=== PATIENT | female | born 1950 | race Caucasian/White ===

== ENCOUNTER 2020-09-10 17:48 | Inpatient (IN) ==
[2020-09-10] MEDS ORDERED: Ampicillin/Sulbactam 3,000 MG in 0.9 % Sodium Chloride Mini Bag 100 ML IVPB ONE (21:07)
[2020-09-10] MEDS ORDERED: Naloxone 0.4 MG/ML INJ IVP PRN (22:07)
[2020-09-10] MEDS ORDERED: Vancomycin 1,500 MG/265 ML IV.SOLN IVPB ONE (22:35)
[2020-09-10] MEDS ORDERED: Ketorolac 15 MG/ML VIAL IVP PRN (22:38)
[2020-09-11 03:55] LABS: Hematocrit 33.2 % (35.3-44.9); Hemoglobin 10.9 g/dL (11.5-15.4); Mean Corpuscular HGB Conc 32.8 g/dL (31.6-35.5); Mean Corpuscular Hemoglobin 31.2 pg (28.0-33.3); Mean Corpuscular Volume 95.1 fL (83.0-100.0); Mean Platelet Volume 10.6 fL (9.4-12.4); Platelet Count 228 K/mcL (140-400); Red Blood Count 3.49 M/mcL (3.82-4.97); Red Cell Distribution Width 13.9 % (11.5-14.5)
[2020-09-11 04:04] LABS: BUN/Creatinine Ratio 23 (6-26); Blood Urea Nitrogen 25 mg/dL (8-23); Calcium 9.5 mg/dL (8.6-10.3); Carbon Dioxide 20 mEq/L (23-29); Chloride 108 mEq/L (98-107); Glucose 92 mg/dL (70-105); Osmolality,Calculated 286 (280-300); Potassium 5.4 mEq/L (3.5-5.1); Sodium 136 mEq/L (136-145); eGFR For African Americans > 60 (> 60); eGFR For Non-African Americans 50 (> 60)
[2020-09-11] MEDS: *HR* Heparin 5,000 UNIT/ML VIAL SQ SCH ×3 (05:50→23:31)
[2020-09-11] MEDS ORDERED: ALPRAZolam 0.5 MG TABLET PO PRN (07:57)
[2020-09-11] MEDS ORDERED: Insulin Human Regular 10 UNIT in 0.9 % Sodium Chloride 10 ML IV ONE (07:58)
[2020-09-11] MEDS ORDERED: *HR* Dextrose 50 % in Water (Vial) 50 ML VIAL IVP ONE (07:59)
[2020-09-11] MEDS: cefTRIAXone 1,000 MG in Water for inj. (sterile) 10 ML IVP SCH (09:10)
[2020-09-11] MEDS: atenoloL 50 MG TABLET PO SCH (09:12)
[2020-09-11] MEDS: Gabapentin 300 MG CAPSULE PO SCH ×3 (09:13→20:34)
[2020-09-11] MEDS: PARoxetine 10 MG TABLET PO SCH (09:13)
[2020-09-11] MEDS: lisinopriL 20 MG TABLET PO SCH (09:13)
[2020-09-11] MEDS: *HR* OxyCODONE/APAP 10/325 TABLET PO PRN ×2 (11:41→16:26)
[2020-09-11] MEDS: Furosemide 20 MG TABLET PO SCH (11:41)
[2020-09-11] MEDS: Nystatin POWDER 30 GM BOTTLE TP SCH ×3 (14:05→20:34)
[2020-09-11] MEDS ORDERED: Ondansetron 4 MG/2 ML VIAL IVP PRN (14:28)
[2020-09-12] MEDS: *HR* OxyCODONE/APAP 10/325 TABLET PO PRN ×4 (03:56→20:35)
[2020-09-12 04:50] LABS: Basophils % 0.3 %; Eosinophils # 0.2 K/mcL (0.0-0.6); Eosinophils % 2.3 %; Hematocrit 31.4 % (35.3-44.9); Hemoglobin 10.1 g/dL (11.5-15.4); Immature Granulocytes % 0.5 % (0-4); Lymphocytes # 1.4 K/mcL (0.6-4.6); Lymphocytes % 21.4 %; Mean Corpuscular HGB Conc 32.2 g/dL (31.6-35.5); Mean Corpuscular Hemoglobin 31.4 pg (28.0-33.3); Mean Corpuscular Volume 97.5 fL (83.0-100.0); Mean Platelet Volume 10.9 fL (9.4-12.4); Monocytes # 0.6 K/mcL (0.0-1.3); Monocytes % 8.7 %; Neutrophils # 4.4 K/mcL (1.6-8.9); Platelet Count 226 K/mcL (140-400); Red Blood Count 3.22 M/mcL (3.82-4.97); Red Cell Distribution Width 13.9 % (11.5-14.5); Segmented Neutrophils % 66.8 %; White Blood Count 6.5 K/mcL (4.3-11.1)
[2020-09-12 05:09] LABS: Calcium 8.9 mg/dL (8.6-10.3); Magnesium 1.7 mg/dL (1.6-2.6); Phosphorous 2.9 mg/dL (2.7-4.5); Potassium 4.4 mEq/L (3.5-5.1)
[2020-09-12] MEDS: *HR* Heparin 5,000 UNIT/ML VIAL SQ SCH ×3 (05:27→23:43)
[2020-09-12] MEDS: Gabapentin 300 MG CAPSULE PO SCH ×3 (09:15→20:28)
[2020-09-12] MEDS: Furosemide 20 MG TABLET PO SCH (09:15)
[2020-09-12] MEDS: cefTRIAXone 1,000 MG in Water for inj. (sterile) 10 ML IVP SCH (09:16)
[2020-09-12] MEDS: PARoxetine 10 MG TABLET PO SCH (09:16)
[2020-09-12] MEDS: Nystatin POWDER 30 GM BOTTLE TP SCH ×3 (09:19→20:28)
[2020-09-12] MEDS: lisinopriL 20 MG TABLET PO SCH (09:24)
[2020-09-12] MEDS: atenoloL 50 MG TABLET PO SCH (09:24)
[2020-09-13 03:49] LABS: Basophils % 0.3 %; Eosinophils # 0.2 K/mcL (0.0-0.6); Eosinophils % 3.7 %; Hematocrit 30.3 % (35.3-44.9); Hemoglobin 9.8 g/dL (11.5-15.4); Immature Granulocytes % 0.5 % (0-4); Lymphocytes # 1.7 K/mcL (0.6-4.6); Lymphocytes % 29.2 %; Mean Corpuscular HGB Conc 32.3 g/dL (31.6-35.5); Mean Corpuscular Hemoglobin 31.7 pg (28.0-33.3); Mean Corpuscular Volume 98.1 fL (83.0-100.0); Mean Platelet Volume 10.8 fL (9.4-12.4); Monocytes # 0.4 K/mcL (0.0-1.3); Monocytes % 7.5 %; Neutrophils # 3.4 K/mcL (1.6-8.9); Platelet Count 219 K/mcL (140-400); Red Blood Count 3.09 M/mcL (3.82-4.97); Red Cell Distribution Width 14.1 % (11.5-14.5); Segmented Neutrophils % 58.8 %; White Blood Count 5.7 K/mcL (4.3-11.1)
[2020-09-13 04:11] LABS: Calcium 8.7 mg/dL (8.6-10.3); Magnesium 1.5 mg/dL (1.6-2.6); Phosphorous 3.7 mg/dL (2.7-4.5)
[2020-09-13] MEDS: *HR* OxyCODONE/APAP 10/325 TABLET PO PRN ×3 (05:05→18:43)
[2020-09-13] MEDS: *HR* Heparin 5,000 UNIT/ML VIAL SQ SCH ×3 (05:06→21:36)
[2020-09-13] MEDS: PARoxetine 10 MG TABLET PO SCH (09:01)
[2020-09-13] MEDS: atenoloL 50 MG TABLET PO SCH (09:01)
[2020-09-13] MEDS: cefTRIAXone 1,000 MG in Water for inj. (sterile) 10 ML IVP SCH (09:01)
[2020-09-13] MEDS: Gabapentin 300 MG CAPSULE PO SCH ×3 (09:01→21:36)
[2020-09-13] MEDS: lisinopriL 20 MG TABLET PO SCH (09:01)
[2020-09-13] MEDS: Nystatin POWDER 30 GM BOTTLE TP SCH ×3 (09:02→21:36)
[2020-09-14] MEDS: *HR* OxyCODONE/APAP 10/325 TABLET PO PRN ×3 (03:18→14:53)
[2020-09-14] MEDS: *HR* Heparin 5,000 UNIT/ML VIAL SQ SCH ×2 (05:14→14:53)
[2020-09-14 06:50] LABS: Basophils % 0.3 %; Eosinophils # 0.3 K/mcL (0.0-0.6); Eosinophils % 4.3 %; Hematocrit 29.6 % (35.3-44.9); Hemoglobin 9.8 g/dL (11.5-15.4); Immature Granulocytes % 0.3 % (0-4); Lymphocytes % 17.3 %; Mean Corpuscular HGB Conc 33.1 g/dL (31.6-35.5); Mean Corpuscular Hemoglobin 32.2 pg (28.0-33.3); Mean Corpuscular Volume 97.4 fL (83.0-100.0); Mean Platelet Volume 10.4 fL (9.4-12.4); Monocytes # 0.5 K/mcL (0.0-1.3); Platelet Count 212 K/mcL (140-400); Red Blood Count 3.04 M/mcL (3.82-4.97); Red Cell Distribution Width 13.9 % (11.5-14.5); Segmented Neutrophils % 68.8 %; White Blood Count 5.9 K/mcL (4.3-11.1)
[2020-09-14] MEDS: PARoxetine 10 MG TABLET PO SCH (09:24)
[2020-09-14] MEDS: cefTRIAXone 1,000 MG in Water for inj. (sterile) 10 ML IVP SCH (09:24)
[2020-09-14] MEDS: atenoloL 50 MG TABLET PO SCH (09:24)
[2020-09-14] MEDS: lisinopriL 20 MG TABLET PO SCH (09:24)
[2020-09-14] MEDS: Gabapentin 300 MG CAPSULE PO SCH ×2 (09:24→14:53)
[2020-09-14] MEDS: Nystatin POWDER 30 GM BOTTLE TP SCH ×2 (09:25→14:55)
[2020-09-14 09:36] LABS: Calcium 9.3 mg/dL (8.6-10.3); Magnesium 1.9 mg/dL (1.6-2.6); Phosphorous 3.6 mg/dL (2.7-4.5); Potassium 4.4 mEq/L (3.5-5.1)
[2020-09-14 11:16] VITALS: BP 104/56
== END 2020-09-14 19:50 | disposition critical access hospital (66) | DRG 603 ==
LOC: 3ANU 17:48 → EMEROOARM 17:48 → 3ANU 22:07 → SUATTDRO 09-11 11:40
PROVIDERS: ADMIT Internal Medicine; ATTEND Student in an Organized Health Care Education/Training Program

== ENCOUNTER 2021-02-18 18:00 | Inpatient (IN) ==
[2021-02-18] MEDS ORDERED: Naloxone 0.4 MG/ML INJ IVP PRN (20:26)
[2021-02-18] MEDS ORDERED: Ipratropium/Albuterol Neb 3 ML IH PRN (20:28)
[2021-02-18] MEDS: Ringers Solution, Lactated 1,000 ML IVC SCH (20:49)
[2021-02-18 22:48] LABS: Calcium 8.7 mg/dL (8.6-10.3)
[2021-02-19] MEDS: Piperacillin/Tazobactam 3.375 GM in 0.9 % Sodium Chloride Mini Bag 100 ML IVPB SCH ×3 (00:11→15:37)
[2021-02-19 03:13] LABS: Platelet Count 242 K/mcL (140-400)
[2021-02-19 03:14] LABS: Basophils # 0.1 K/mcL (0.0-0.2); Basophils % 0.2 %; Hemoglobin 12.4 g/dL (11.5-15.4); Immature Granulocytes % 0.9 % (0-4); Lymphocytes # 0.6 K/mcL (0.6-4.6); Lymphocytes % 1.3 %; Mean Corpuscular HGB Conc 33.5 g/dL (31.6-35.5); Mean Corpuscular Hemoglobin 31.6 pg (28.0-33.3); Mean Corpuscular Volume 94.4 fL (83.0-100.0); Mean Platelet Volume 11.2 fL (9.4-12.4); Neutrophils # 46.9 K/mcL (1.6-8.9); Red Blood Count 3.92 M/mcL (3.82-4.97); Red Cell Distribution Width 13.8 % (11.5-14.5); Segmented Neutrophils % 95.6 %
[2021-02-19 03:20] LABS: INR 1.1; Prothrombin Time 12.8 Seconds (9.4-12.1)
[2021-02-19 03:22] LABS: White Blood Count 49.1 K/mcL (4.3-11.1)
[2021-02-19 03:29] LABS: Platelet Estimate Normal (Normal)
[2021-02-19 03:31] LABS: Albumin 3.4 g/dL (3.5-5.7); Albumin/Globulin Ratio 1.2 (1.1-2.2); Bilirubin,Total 0.6 mg/dL (0.3-1.0); Calcium 8.5 mg/dL (8.6-10.3); Chol/HDL Ratio 2.6 (0-4.9); Globulin 2.8 g/dL (2.4-3.5); Magnesium 1.8 mg/dL (1.6-2.6); Phosphorous 4.3 mg/dL (2.7-4.5); Potassium 6.1 mEq/L (3.5-5.1); Total Protein 6.2 g/dL (6.4-8.9)
[2021-02-19] MEDS: Ringers Solution, Lactated 1,000 ML IVC SCH (03:37)
[2021-02-19] MEDS ORDERED: *HR* Dextrose 50 % in Water (Vial) 50 ML VIAL IVP ONE (04:30)
[2021-02-19] MEDS ORDERED: Insulin Human Regular 10 UNIT in 0.9 % Sodium Chloride 10 ML IV ONE (04:30)
[2021-02-19 04:57] LABS: VBG HCO3 17 mEq/L (21-27); VBG PCO2 37 mmHg (41-51); VBG PH 7.27 pH Units (7.32-7.42); VBG PO2 41 mmHg (25-50)
[2021-02-19] MEDS: Sodium Bicarbonate 75 MEQ in 0.45 % Sodium Chloride 1,000 ML IVC SCH ×3 (06:46→23:00)
[2021-02-19 08:51] LABS: Red Cell Distribution Width 13.8 % (11.5-14.5)
[2021-02-19 08:53] LABS: Hematocrit 34.9 % (35.3-44.9); Mean Corpuscular HGB Conc 34.4 g/dL (31.6-35.5); Mean Corpuscular Hemoglobin 31.9 pg (28.0-33.3); Mean Corpuscular Volume 92.8 fL (83.0-100.0); Mean Platelet Volume 10.9 fL (9.4-12.4); Platelet Count 232 K/mcL (140-400); Red Blood Count 3.76 M/mcL (3.82-4.97)
[2021-02-19 08:55] LABS: White Blood Count 50.4 K/mcL (4.3-11.1)
[2021-02-19 09:12] LABS: Albumin 3.3 g/dL (3.5-5.7); Albumin/Globulin Ratio 1.3 (1.1-2.2); Bilirubin,Direct 0.2 mg/dL (0.0-0.2); Bilirubin,Indirect 0.4 mg/dL (0.0-1.0); Bilirubin,Total 0.6 mg/dL (0.3-1.0); Calcium 8.4 mg/dL (8.6-10.3); Globulin 2.5 g/dL (2.4-3.5); Potassium 4.9 mEq/L (3.5-5.1); Total Protein 5.8 g/dL (6.4-8.9)
[2021-02-19 09:15] LABS: Neutrophils # 50.4 K/mcL (1.6-8.9); Platelet Estimate Normal (Normal)
[2021-02-19 13:52] LABS: Adenovirus F 40/41 PCR Not detected (Not detect); Astrovirus PCR Not detected (Not detect); C.difficile Toxin A/B Gene PCR Not detected (Not detect); Campylobacter by PCR Not detected (Not detect); Cryptosporidium by PCR Not detected (Not detect); Cyclospora cayetanensis PCR Not detected (Not detect); E. coli O157 by PCR Not detected (Not detect); Entamoeba histolytica PCR Not detected (Not detect); Enteroaggregative E.coli(EAEC) Not detected (Not detect); Enteropathogenic E.coli(EPEC) Not detected (Not detect); Enterotoxigenic E.coli (ETEC) Not detected (Not detect); Giardia lamblia PCR Not detected (Not detect); Norovirus GI/GII PCR Not detected (Not detect); Plesiomonas shigelloides PCR Not detected (Not detect); Rotavirus A PCR Not detected (Not detect); Salmonella PCR Not detected (Not detect); Sapovirus PCR Not detected (Not detect); Shig/EnteroinvasiveE coli EIEC Not detected (Not detect); Shigalike tox-prod E coli STEC Not detected (Not detect); Vibrio PCR Not detected (Not detect); Vibrio cholerae PCR Not detected (Not detect); Yersinia enterocolitica PCR Not detected (Not detect)
[2021-02-19] MEDS ORDERED: *HR* Heparin 5,000 UNIT/ML VIAL SQ SCH (14:00)
[2021-02-19] MEDS: MetroNIDAZOLE 500 MG/100 ML 500 MG/100 ML BAG IVPB SCH (20:07)
[2021-02-19] MEDS: Gabapentin 300 MG CAPSULE PO SCH ×2 (20:07→20:28)
[2021-02-20] MEDS: Piperacillin/Tazobactam 3.375 GM in 0.9 % Sodium Chloride Mini Bag 100 ML IVPB SCH ×4 (01:06→23:25)
[2021-02-20 01:13] LABS: Hemoglobin 10.8 g/dL (11.5-15.4)
[2021-02-20 01:15] LABS: Basophils # 0.1 K/mcL (0.0-0.2); Basophils % 0.2 %; Hematocrit 31.3 % (35.3-44.9); Immature Granulocytes % 1.3 % (0-4); Lymphocytes # 0.8 K/mcL (0.6-4.6); Lymphocytes % 2.1 %; Mean Corpuscular HGB Conc 34.5 g/dL (31.6-35.5); Mean Corpuscular Hemoglobin 31.5 pg (28.0-33.3); Mean Corpuscular Volume 91.3 fL (83.0-100.0); Mean Platelet Volume 11.4 fL (9.4-12.4); Monocytes % 1.7 %; Platelet Count 187 K/mcL (140-400); Red Blood Count 3.43 M/mcL (3.82-4.97); Red Cell Distribution Width 13.9 % (11.5-14.5); Segmented Neutrophils % 94.7 %
[2021-02-20 01:26] LABS: Monocytes # 0.7 K/mcL (0.0-1.3)
[2021-02-20 01:35] LABS: Platelet Estimate Normal (Normal)
[2021-02-20 01:57] LABS: Magnesium 1.6 mg/dL (1.6-2.6); Potassium 3.8 mEq/L (3.5-5.1)
[2021-02-20] MEDS: MetroNIDAZOLE 500 MG/100 ML 500 MG/100 ML BAG IVPB SCH ×3 (05:09→23:23)
[2021-02-20] MEDS: *HR* Promethazine 25 MG/ML VIAL IM PRN ×2 (05:12→23:53)
[2021-02-20] MEDS: Gabapentin 300 MG CAPSULE PO SCH ×3 (08:48→23:24)
[2021-02-20] MEDS: Pantoprazole 40 MG VIAL IVP SCH (08:50)
[2021-02-20] MEDS: Sodium Bicarbonate 75 MEQ in 0.45 % Sodium Chloride 1,000 ML IVC SCH ×3 (08:51→23:23)
[2021-02-20 12:34] LABS: Bacteria,Urine Few per hpf (None-Few); Bilirubin,Urine Negative (Negative); Blood,Urine Negative (Negative); Clarity,Urine Clear (Clear); Color,Urine Light-Yellow (Yellow); Glucose,Urine (UA) Normal (Normal); Ketones,Urine Negative (Negative); Leukocyte Esterase,Urine Small (Negative); Nitrite,Urine Negative (Negative); PH,Urine 5.5 pH Units (5.0-8.0); Protein,Urine Trace mg/dL (Neg-Trace); RBC,Urine 0-3 per hpf (0-3); Specific Gravity,Urine 1.015 (1.010-1.025); Squamous Epithelial Cell,Urine Few per hpf (None-Few); Urobilinogen,Urine Normal (Normal)
[2021-02-21] MEDS ORDERED: Pantoprazole 40 MG VIAL IVP ONE (00:19)
[2021-02-21 01:47] LABS: Basophils % 0.1 %; Eosinophils % 0.1 %; Monocytes % 2.2 %
[2021-02-21 01:49] LABS: Hematocrit 26.3 % (35.3-44.9); Hemoglobin 9.1 g/dL (11.5-15.4); Immature Granulocytes % 2.3 % (0-4); Lymphocytes # 0.8 K/mcL (0.6-4.6); Lymphocytes % 2.3 %; Mean Corpuscular HGB Conc 34.6 g/dL (31.6-35.5); Mean Corpuscular Hemoglobin 31.2 pg (28.0-33.3); Mean Corpuscular Volume 90.1 fL (83.0-100.0); Mean Platelet Volume 11.4 fL (9.4-12.4); Monocytes # 0.7 K/mcL (0.0-1.3); Platelet Count 156 K/mcL (140-400); Red Blood Count 2.92 M/mcL (3.82-4.97); Red Cell Distribution Width 13.6 % (11.5-14.5)
[2021-02-21 01:51] LABS: Neutrophils # 31.3 K/mcL (1.6-8.9); White Blood Count 33.7 K/mcL (4.3-11.1)
[2021-02-21 02:07] LABS: BUN/Creatinine Ratio 30 (6-26); Blood Urea Nitrogen 28 mg/dL (8-23); Calcium 7.6 mg/dL (8.6-10.3); Carbon Dioxide 23 mEq/L (23-29); Chloride 101 mEq/L (98-107); Glucose 138 mg/dL (70-105); Magnesium 1.4 mg/dL (1.6-2.6); Osmolality,Calculated 288 (280-300); Sodium 135 mEq/L (136-145); eGFR For African Americans > 60 (> 60); eGFR For Non-African Americans 60 (> 60)
[2021-02-21] MEDS: MetroNIDAZOLE 500 MG/100 ML 500 MG/100 ML BAG IVPB SCH ×3 (05:15→21:43)
[2021-02-21] MEDS: Sodium Bicarbonate 75 MEQ in 0.45 % Sodium Chloride 1,000 ML IVC SCH (07:19)
[2021-02-21] MEDS ORDERED: Potassium Chloride 40 MEQ, Lidocaine 1% 2 ML in 0.9 % Sodium Chloride 500 ML IVPB ONE (07:25)
[2021-02-21] MEDS: Gabapentin 300 MG CAPSULE PO SCH ×3 (08:29→21:34)
[2021-02-21] MEDS: Pantoprazole 40 MG VIAL IVP SCH (08:30)
[2021-02-21] MEDS: Piperacillin/Tazobactam 3.375 GM in 0.9 % Sodium Chloride Mini Bag 100 ML IVPB SCH ×3 (08:30→23:08)
[2021-02-21] MEDS: *HR* Promethazine 25 MG/ML VIAL IM PRN ×2 (08:41→23:07)
[2021-02-21] MEDS ORDERED: Ringers Solution, Lactated 1,000 ML IVC SCH (11:30)
[2021-02-21] MEDS: Nystatin POWDER 30 GM BOTTLE TP SCH ×2 (11:41→21:54)
[2021-02-21] MEDS: *HR* OxyCODONE Immed Rel 5 MG TABLET PO PRN ×2 (16:20→22:32)
[2021-02-21] MEDS: Ringers Solution, Lactated 1,000 ML IVC SCH (19:28)
[2021-02-21] MEDS: ALPRAZolam 0.5 MG TABLET PO PRN (21:34)
[2021-02-22 01:20] LABS: Hematocrit 25.5 % (35.3-44.9); Hemoglobin 8.8 g/dL (11.5-15.4); Mean Corpuscular HGB Conc 34.5 g/dL (31.6-35.5); Mean Corpuscular Volume 89.8 fL (83.0-100.0); Mean Platelet Volume 11.2 fL (9.4-12.4); Platelet Count 135 K/mcL (140-400); Red Blood Count 2.84 M/mcL (3.82-4.97); Red Cell Distribution Width 13.2 % (11.5-14.5); White Blood Count 21.7 K/mcL (4.3-11.1)
[2021-02-22 01:39] LABS: BUN/Creatinine Ratio 22 (6-26); Blood Urea Nitrogen 17 mg/dL (8-23); Calcium 7.5 mg/dL (8.6-10.3); Carbon Dioxide 25 mEq/L (23-29); Chloride 98 mEq/L (98-107); Glucose 122 mg/dL (70-105); Osmolality,Calculated 275 (280-300); Potassium 2.9 mEq/L (3.5-5.1); Sodium 131 mEq/L (136-145); eGFR For African Americans > 60 (> 60); eGFR For Non-African Americans > 60 (> 60)
[2021-02-22] MEDS: Acetaminophen 325 MG TABLET PO PRN (01:46)
[2021-02-22] MEDS: Ondansetron 4 MG/2 ML VIAL IVP PRN (03:34)
[2021-02-22] MEDS: MetroNIDAZOLE 500 MG/100 ML 500 MG/100 ML BAG IVPB SCH (03:36)
[2021-02-22] MEDS: Gabapentin 300 MG CAPSULE PO SCH ×3 (07:44→21:44)
[2021-02-22] MEDS: Piperacillin/Tazobactam 3.375 GM in 0.9 % Sodium Chloride Mini Bag 100 ML IVPB SCH ×2 (07:45→15:51)
[2021-02-22] MEDS: Pantoprazole 40 MG VIAL IVP SCH (07:45)
[2021-02-22] MEDS: *HR* OxyCODONE Immed Rel 5 MG TABLET PO PRN (07:48)
[2021-02-22] MEDS ORDERED: Potassium Chloride 40 MEQ, Lidocaine 1% 2 ML in 0.9 % Sodium Chloride 500 ML IVPB ONE (07:49)
[2021-02-22] MEDS: Nystatin POWDER 30 GM BOTTLE TP SCH ×2 (07:57→21:44)
[2021-02-22] MEDS: Potassium Chloride Elixir 20 MEQ/15 ML UDC PO SCH ×2 (08:09→11:20)
[2021-02-22] MEDS ORDERED: Magnesium Sulfate 1 GM/102 ML PIGGYBACK IVPB ONE ×2 (08:11→15:39)
[2021-02-22] MEDS ORDERED: Calcium Chloride 1,000 MG in 0.9 % Sodium Chloride 100 ML IVPB ONE (08:26)
[2021-02-22] MEDS: Calcium Gluconate 1gm/50mL 1 GM/50 ML BAG IVPB ONE ×2 (09:20→09:21)
[2021-02-22] MEDS: Calcium Gluconate 1gm/50mL 1 GM/50 ML BAG IVPB SCH (11:20)
[2021-02-22 14:27] LABS: Magnesium 1.2 mg/dL (1.6-2.6); Phosphorous 1.1 mg/dL (2.7-4.5)
[2021-02-22] MEDS ORDERED: Potassium Phosphate 44 MEQ in 0.9 % Sodium Chloride 250 ML IVPB ONE (15:38)
[2021-02-22] MEDS: *HR* OxyCODONE/APAP 5/325 TABLET PO PRN ×2 (18:02→22:02)
[2021-02-22] MEDS: ALPRAZolam 0.5 MG TABLET PO PRN (21:47)
[2021-02-23 00:45] LABS: Hematocrit 26.2 % (35.3-44.9); Hemoglobin 8.9 g/dL (11.5-15.4); Mean Corpuscular Hemoglobin 31.1 pg (28.0-33.3); Mean Corpuscular Volume 91.6 fL (83.0-100.0); Mean Platelet Volume 10.9 fL (9.4-12.4); Platelet Count 152 K/mcL (140-400); Red Blood Count 2.86 M/mcL (3.82-4.97); Red Cell Distribution Width 13.1 % (11.5-14.5); White Blood Count 17.3 K/mcL (4.3-11.1)
[2021-02-23 01:03] LABS: BUN/Creatinine Ratio 17 (6-26); Blood Urea Nitrogen 13 mg/dL (8-23); Calcium 7.8 mg/dL (8.6-10.3); Carbon Dioxide 23 mEq/L (23-29); Chloride 100 mEq/L (98-107); Glucose 125 mg/dL (70-105); Osmolality,Calculated 272 (280-300); Potassium 3.9 mEq/L (3.5-5.1); Sodium 130 mEq/L (136-145); eGFR For African Americans > 60 (> 60); eGFR For Non-African Americans > 60 (> 60)
[2021-02-23] MEDS: Piperacillin/Tazobactam 3.375 GM in 0.9 % Sodium Chloride Mini Bag 100 ML IVPB SCH ×6 (01:15→23:04)
[2021-02-23] MEDS: *HR* OxyCODONE/APAP 5/325 TABLET PO PRN ×3 (06:58→21:24)
[2021-02-23] MEDS: Calcium Gluconate 1gm/50mL 1 GM/50 ML BAG IVPB SCH (07:36)
[2021-02-23] MEDS: Ringers Solution, Lactated 1,000 ML IVC SCH (07:36)
[2021-02-23] MEDS: Sodium Bicarbonate 75 MEQ in 0.45 % Sodium Chloride 1,000 ML IVC SCH (07:38)
[2021-02-23] MEDS: MetroNIDAZOLE 500 MG/100 ML 500 MG/100 ML BAG IVPB SCH (07:41)
[2021-02-23] MEDS: Gabapentin 300 MG CAPSULE PO SCH ×3 (08:39→21:22)
[2021-02-23] MEDS: Pantoprazole 40 MG VIAL IVP SCH (08:39)
[2021-02-23] MEDS: Nystatin POWDER 30 GM BOTTLE TP SCH ×2 (08:47→21:31)
[2021-02-23] MEDS ORDERED: Aspirin Enteric Coated 81 MG Tablet PO SCH (10:45)
[2021-02-23 10:47] LABS: Magnesium 1.5 mg/dL (1.6-2.6); Phosphorous 1.6 mg/dL (2.7-4.5)
[2021-02-23] MEDS: Ondansetron 4 MG/2 ML VIAL IVP PRN (11:47)
[2021-02-23] MEDS: ALPRAZolam 0.5 MG TABLET PO PRN (16:44)
[2021-02-23] MEDS: *HR* Promethazine 25 MG/ML VIAL IM PRN (21:22)
[2021-02-23] MEDS ORDERED: Prochlorperazine 10 MG/2 ML VIAL IVP PRN (23:21)
[2021-02-23] MEDS ORDERED: *HR* OxyCODONE Immed Rel 5 MG TABLET PO ONE (23:40)
[2021-02-24 06:37] LABS: BUN/Creatinine Ratio 14 (6-26); Blood Urea Nitrogen 11 mg/dL (8-23); Calcium 7.8 mg/dL (8.6-10.3); Carbon Dioxide 23 mEq/L (23-29); Chloride 101 mEq/L (98-107); Glucose 116 mg/dL (70-105); Magnesium 1.6 mg/dL (1.6-2.6); Osmolality,Calculated 274 (280-300); Phosphorous 2.8 mg/dL (2.7-4.5); Potassium 3.7 mEq/L (3.5-5.1); Sodium 132 mEq/L (136-145); eGFR For African Americans > 60 (> 60); eGFR For Non-African Americans > 60 (> 60)
[2021-02-24 07:02] LABS: Hematocrit 26.6 % (35.3-44.9); Mean Corpuscular HGB Conc 33.8 g/dL (31.6-35.5); Mean Corpuscular Hemoglobin 31.5 pg (28.0-33.3); Platelet Count 163 K/mcL (140-400); Red Blood Count 2.86 M/mcL (3.82-4.97); Red Cell Distribution Width 13.2 % (11.5-14.5); White Blood Count 18.2 K/mcL (4.3-11.1)
[2021-02-24] MEDS: Gabapentin 300 MG CAPSULE PO SCH ×3 (08:17→20:50)
[2021-02-24] MEDS: *HR* OxyCODONE/APAP 5/325 TABLET PO PRN ×3 (08:17→20:54)
[2021-02-24] MEDS: Piperacillin/Tazobactam 3.375 GM in 0.9 % Sodium Chloride Mini Bag 100 ML IVPB SCH ×2 (08:18→15:56)
[2021-02-24] MEDS: Nystatin POWDER 30 GM BOTTLE TP SCH ×2 (08:32→20:50)
[2021-02-24] MEDS: Ondansetron 4 MG/2 ML VIAL IVP PRN (20:54)
[2021-02-25] MEDS: ALPRAZolam 0.5 MG TABLET PO PRN ×2 (00:23→20:16)
[2021-02-25] MEDS: Piperacillin/Tazobactam 3.375 GM in 0.9 % Sodium Chloride Mini Bag 100 ML IVPB SCH ×3 (00:23→15:21)
[2021-02-25] MEDS: *HR* OxyCODONE/APAP 5/325 TABLET PO PRN ×4 (05:13→20:16)
[2021-02-25] MEDS: Gabapentin 300 MG CAPSULE PO SCH ×3 (07:53→20:14)
[2021-02-25] MEDS: Nystatin POWDER 30 GM BOTTLE TP SCH ×2 (07:54→22:00)
[2021-02-25 08:53] LABS: Hematocrit 24.9 % (35.3-44.9); Hemoglobin 8.5 g/dL (11.5-15.4); Mean Corpuscular HGB Conc 34.1 g/dL (31.6-35.5); Mean Corpuscular Hemoglobin 31.5 pg (28.0-33.3); Mean Corpuscular Volume 92.2 fL (83.0-100.0); Mean Platelet Volume 10.2 fL (9.4-12.4); Platelet Count 174 K/mcL (140-400); Red Cell Distribution Width 13.1 % (11.5-14.5)
[2021-02-25 09:17] LABS: BUN/Creatinine Ratio 12 (6-26); Blood Urea Nitrogen 10 mg/dL (8-23); Calcium 7.8 mg/dL (8.6-10.3); Carbon Dioxide 25 mEq/L (23-29); Chloride 101 mEq/L (98-107); Glucose 133 mg/dL (70-105); Osmolality,Calculated 275 (280-300); Potassium 3.8 mEq/L (3.5-5.1); Sodium 132 mEq/L (136-145); eGFR For African Americans > 60 (> 60); eGFR For Non-African Americans > 60 (> 60)
[2021-02-26] MEDS: *HR* OxyCODONE/APAP 5/325 TABLET PO PRN ×4 (00:23→19:20)
[2021-02-26] MEDS: Piperacillin/Tazobactam 3.375 GM in 0.9 % Sodium Chloride Mini Bag 100 ML IVPB SCH ×2 (00:26→08:04)
[2021-02-26 07:48] LABS: Hematocrit 23.7 % (35.3-44.9); Hemoglobin 7.9 g/dL (11.5-15.4); Mean Corpuscular HGB Conc 33.3 g/dL (31.6-35.5); Mean Corpuscular Hemoglobin 30.7 pg (28.0-33.3); Mean Corpuscular Volume 92.2 fL (83.0-100.0); Mean Platelet Volume 9.9 fL (9.4-12.4); Platelet Count 197 K/mcL (140-400); Red Blood Count 2.57 M/mcL (3.82-4.97); Red Cell Distribution Width 12.9 % (11.5-14.5); White Blood Count 12.8 K/mcL (4.3-11.1)
[2021-02-26 07:58] LABS: BUN/Creatinine Ratio 14 (6-26); Blood Urea Nitrogen 12 mg/dL (8-23); Calcium 7.7 mg/dL (8.6-10.3); Carbon Dioxide 26 mEq/L (23-29); Chloride 102 mEq/L (98-107); Glucose 101 mg/dL (70-105); Osmolality,Calculated 278 (280-300); Potassium 3.9 mEq/L (3.5-5.1); Sodium 134 mEq/L (136-145); eGFR For African Americans > 60 (> 60); eGFR For Non-African Americans > 60 (> 60)
[2021-02-26] MEDS: Gabapentin 300 MG CAPSULE PO SCH ×3 (08:04→19:20)
[2021-02-26] MEDS: Nystatin POWDER 30 GM BOTTLE TP SCH (08:05)
[2021-02-26] MEDS: metroNIDAZOLE 500 MG TABLET PO SCH ×2 (15:34→19:20)
[2021-02-26] MEDS: Acetaminophen 325 MG TABLET PO PRN (17:35)
[2021-02-26] MEDS: ALPRAZolam 0.5 MG TABLET PO PRN (19:23)
[2021-02-27] MEDS: *HR* OxyCODONE/APAP 5/325 TABLET PO PRN ×4 (00:44→19:27)
[2021-02-27] MEDS: Nystatin POWDER 30 GM BOTTLE TP SCH ×2 (01:19→08:34)
[2021-02-27 08:20] LABS: Hematocrit 26.5 % (35.3-44.9); Hemoglobin 8.7 g/dL (11.5-15.4); Mean Corpuscular HGB Conc 32.8 g/dL (31.6-35.5); Mean Corpuscular Hemoglobin 30.9 pg (28.0-33.3); Mean Platelet Volume 9.4 fL (9.4-12.4); Platelet Count 249 K/mcL (140-400); Red Blood Count 2.82 M/mcL (3.82-4.97); Red Cell Distribution Width 12.9 % (11.5-14.5); White Blood Count 13.7 K/mcL (4.3-11.1)
[2021-02-27] MEDS: metroNIDAZOLE 500 MG TABLET PO SCH ×3 (08:31→19:27)
[2021-02-27] MEDS: Gabapentin 300 MG CAPSULE PO SCH ×3 (08:32→19:27)
[2021-02-27 08:36] LABS: BUN/Creatinine Ratio 14 (6-26); Blood Urea Nitrogen 14 mg/dL (8-23); Calcium 8.2 mg/dL (8.6-10.3); Carbon Dioxide 28 mEq/L (23-29); Chloride 101 mEq/L (98-107); Glucose 122 mg/dL (70-105); Magnesium 1.3 mg/dL (1.6-2.6); Osmolality,Calculated 282 (280-300); Phosphorous 3.1 mg/dL (2.7-4.5); Potassium 4.4 mEq/L (3.5-5.1); Sodium 135 mEq/L (136-145); eGFR For African Americans > 60 (> 60); eGFR For Non-African Americans 54 (> 60)
[2021-02-27 14:03] LABS: Adenovirus Not Detected (Not Detect); Bordetella Pertussis Not Detected (Not Detect); Chlamydophila pneumoniae Not Detected (Not Detect); Coronavirus 229E Not Detected (Not Detect); Coronavirus HKU1 Not Detected (Not Detect); Coronavirus NL63 Not Detected (Not Detect); Coronavirus OC43 Not Detected (Not Detect); Human Metapneumovirus Not Detected (Not Detect); Human Rhinovirus/Enterovirus Not Detected (Not Detect); Influenza A Subtype 2009 H1 Not Detected (Not Detect); Influenza B Not Detected (Not Detect); Mycoplasma pneumoniae Not Detected (Not Detect); Parainfluenza Virus 1 Not Detected (Not Detect); Parainfluenza Virus 2 Not Detected (Not Detect); Parainfluenza Virus 3 Not Detected (Not Detect); Parainfluenza Virus 4 Not Detected (Not Detect); Respiratory Syncytial Virus Not Detected (Not Detect); SARS-CoV-2 Not Detected (Not Detect)
[2021-02-27] MEDS: ALPRAZolam 0.5 MG TABLET PO PRN (19:27)
[2021-02-27] MEDS: Acetaminophen 325 MG TABLET PO PRN (20:48)
[2021-02-28] MEDS: Nystatin POWDER 30 GM BOTTLE TP SCH ×3 (00:24→21:39)
[2021-02-28] MEDS: *HR* OxyCODONE/APAP 5/325 TABLET PO PRN ×4 (03:57→20:47)
[2021-02-28 06:36] LABS: Hematocrit 24.7 % (35.3-44.9); Hemoglobin 8.3 g/dL (11.5-15.4); Mean Corpuscular HGB Conc 33.6 g/dL (31.6-35.5); Mean Corpuscular Volume 92.2 fL (83.0-100.0); Mean Platelet Volume 9.4 fL (9.4-12.4); Platelet Count 286 K/mcL (140-400); Red Blood Count 2.68 M/mcL (3.82-4.97); Red Cell Distribution Width 12.8 % (11.5-14.5); White Blood Count 8.7 K/mcL (4.3-11.1)
[2021-02-28 06:58] LABS: BUN/Creatinine Ratio 17 (6-26); Blood Urea Nitrogen 15 mg/dL (8-23); Carbon Dioxide 26 mEq/L (23-29); Chloride 100 mEq/L (98-107); Glucose 121 mg/dL (70-105); Magnesium 1.2 mg/dL (1.6-2.6); Osmolality,Calculated 278 (280-300); Potassium 3.7 mEq/L (3.5-5.1); Sodium 133 mEq/L (136-145); eGFR For African Americans > 60 (> 60); eGFR For Non-African Americans > 60 (> 60)
[2021-02-28] MEDS ORDERED: Isovue-370 500 ML BOTTLE IVP ONE (07:33)
[2021-02-28] MEDS: metroNIDAZOLE 500 MG TABLET PO SCH ×3 (08:05→20:48)
[2021-02-28] MEDS: Gabapentin 300 MG CAPSULE PO SCH ×3 (08:05→20:48)
[2021-02-28 13:44] LABS: Adenovirus F 40/41 PCR Not detected (Not detect); Astrovirus PCR Not detected (Not detect); C.difficile Toxin A/B Gene PCR Not detected (Not detect); Campylobacter by PCR Not detected (Not detect); Cryptosporidium by PCR Not detected (Not detect); Cyclospora cayetanensis PCR Not detected (Not detect); E. coli O157 by PCR Not detected (Not detect); Entamoeba histolytica PCR Not detected (Not detect); Enteroaggregative E.coli(EAEC) Not detected (Not detect); Enteropathogenic E.coli(EPEC) Not detected (Not detect); Enterotoxigenic E.coli (ETEC) Not detected (Not detect); Giardia lamblia PCR Not detected (Not detect); Norovirus GI/GII PCR Not detected (Not detect); Plesiomonas shigelloides PCR Not detected (Not detect); Rotavirus A PCR Not detected (Not detect); Salmonella PCR Not detected (Not detect); Sapovirus PCR Not detected (Not detect); Shig/EnteroinvasiveE coli EIEC Not detected (Not detect); Shigalike tox-prod E coli STEC Not detected (Not detect); Vibrio PCR Not detected (Not detect); Vibrio cholerae PCR Not detected (Not detect); Yersinia enterocolitica PCR Not detected (Not detect)
[2021-02-28 15:12] LABS: Alanine Aminotransferase 4 Units/L (7-52); Albumin 2.3 g/dL (3.5-5.7); Albumin/Globulin Ratio 0.8 (1.1-2.2); Alkaline Phosphatase 72 Units/L (34-104); Aspartate Amino Transferase 7 Units/L (13-39); Bilirubin,Direct 0.1 mg/dL (0.0-0.2); Bilirubin,Indirect 0.2 mg/dL (0.0-1.0); Bilirubin,Total 0.3 mg/dL (0.3-1.0); Total Protein 5.3 g/dL (6.4-8.9)
[2021-02-28] MEDS: Ondansetron 4 MG/2 ML VIAL IVP PRN (23:26)
[2021-02-28] MEDS: ALPRAZolam 0.5 MG TABLET PO PRN (23:30)
[2021-03-01 02:45] LABS: Calcium 7.9 mg/dL (8.6-10.3); Magnesium 1.4 mg/dL (1.6-2.6); Potassium 3.8 mEq/L (3.5-5.1)
[2021-03-01] MEDS: *HR* OxyCODONE/APAP 5/325 TABLET PO PRN ×3 (04:37→16:00)
[2021-03-01] MEDS: Gabapentin 300 MG CAPSULE PO SCH ×3 (08:09→20:22)
[2021-03-01] MEDS: Nystatin POWDER 30 GM BOTTLE TP SCH ×2 (08:10→20:22)
[2021-03-01] MEDS: metroNIDAZOLE 500 MG TABLET PO SCH ×3 (08:10→20:22)
[2021-03-01] MEDS: ALPRAZolam 0.5 MG TABLET PO PRN (22:34)
[2021-03-01] MEDS: Ondansetron 4 MG/2 ML VIAL IVP PRN (23:49)
[2021-03-02 02:53] LABS: Hematocrit 24.1 % (35.3-44.9); Hemoglobin 8.2 g/dL (11.5-15.4); Mean Corpuscular Hemoglobin 31.3 pg (28.0-33.3); Platelet Count 363 K/mcL (140-400); Red Blood Count 2.62 M/mcL (3.82-4.97); Red Cell Distribution Width 12.9 % (11.5-14.5); White Blood Count 6.4 K/mcL (4.3-11.1)
[2021-03-02 03:11] LABS: BUN/Creatinine Ratio 16 (6-26); Blood Urea Nitrogen 14 mg/dL (8-23); Calcium 8.3 mg/dL (8.6-10.3); Carbon Dioxide 23 mEq/L (23-29); Chloride 97 mEq/L (98-107); Glucose 161 mg/dL (70-105); Magnesium 1.4 mg/dL (1.6-2.6); Osmolality,Calculated 276 (280-300); Sodium 131 mEq/L (136-145); eGFR For African Americans > 60 (> 60); eGFR For Non-African Americans > 60 (> 60)
[2021-03-02] MEDS: *HR* OxyCODONE/APAP 5/325 TABLET PO PRN ×3 (04:41→14:34)
[2021-03-02] MEDS: Gabapentin 300 MG CAPSULE PO SCH ×2 (08:29→13:44)
[2021-03-02] MEDS: metroNIDAZOLE 500 MG TABLET PO SCH ×2 (08:29→13:44)
[2021-03-02] MEDS: Nystatin POWDER 30 GM BOTTLE TP SCH (08:30)
[2021-03-02] MEDS ORDERED: Pantoprazole 40 MG VIAL IVP ONE (13:57)
[2021-03-02 15:15] LABS: Adenovirus Not Detected (Not Detect); Bordetella Pertussis Not Detected (Not Detect); Chlamydophila pneumoniae Not Detected (Not Detect); Coronavirus 229E Not Detected (Not Detect); Coronavirus HKU1 Not Detected (Not Detect); Coronavirus NL63 Not Detected (Not Detect); Coronavirus OC43 Not Detected (Not Detect); Human Metapneumovirus Not Detected (Not Detect); Human Rhinovirus/Enterovirus Not Detected (Not Detect); Influenza A Subtype 2009 H1 Not Detected (Not Detect); Influenza B Not Detected (Not Detect); Mycoplasma pneumoniae Not Detected (Not Detect); Parainfluenza Virus 1 Not Detected (Not Detect); Parainfluenza Virus 2 Not Detected (Not Detect); Parainfluenza Virus 3 Not Detected (Not Detect); Parainfluenza Virus 4 Not Detected (Not Detect); Respiratory Syncytial Virus Not Detected (Not Detect); SARS-CoV-2 Not Detected (Not Detect)
[2021-03-02 15:27] VITALS: BP 147/69; PULSE 98; TEMP 98.9; O2SAT 99
== END 2021-03-02 18:43 | DRG 871 ==
LOC: 2NNU → SUATTDRO 19:45 → 3NENU 02-22 16:35 → 2ANU 02-24 20:32
PROVIDERS: ADMIT Internal Medicine; ATTEND Internal Medicine

== ENCOUNTER 2021-09-15 10:13 | Inpatient (IN) ==
[2021-09-15] MEDS ORDERED: Perflutren Lipid Microsphere 1.3 ML in 0.9 % Sodium Chloride 8.7 ML IVP PRN (10:24)
[2021-09-15] MEDS ORDERED: Lidocaine -MPF 1% 5 ML AMPUL INFILT ONE (10:45)
[2021-09-15] MEDS ORDERED: Ondansetron 4 MG/2 ML VIAL IVP PRN (10:47)
[2021-09-15 11:40] LABS: Basophils % 0.2 %; Eosinophils # 0.2 K/mcL (0.0-0.6); Eosinophils % 2.3 %; Hematocrit 29.3 % (35.3-44.9); Hemoglobin 9.7 g/dL (11.5-15.4); Immature Granulocytes % 0.4 % (0-4); Lymphocytes # 1.6 K/mcL (0.6-4.6); Lymphocytes % 18.9 %; Mean Corpuscular HGB Conc 33.1 g/dL (31.6-35.5); Mean Corpuscular Hemoglobin 30.9 pg (28.0-33.3); Mean Corpuscular Volume 93.3 fL (83.0-100.0); Mean Platelet Volume 8.9 fL (9.4-12.4); Monocytes # 0.5 K/mcL (0.0-1.3); Monocytes % 6.4 %; Platelet Count 283 K/mcL (140-400); Red Blood Count 3.14 M/mcL (3.82-4.97); Red Cell Distribution Width 12.9 % (11.5-14.5); Segmented Neutrophils % 71.8 %; White Blood Count 8.3 K/mcL (4.3-11.1)
[2021-09-15 11:48] LABS: INR 1.1; Prothrombin Time 12.3 Seconds (9.4-12.1)
[2021-09-15 11:50] LABS: Estimated Average Glucose 105 mg/dl; Hemoglobin A1C 5.3 %
[2021-09-15 11:59] LABS: Albumin 3.5 g/dL (3.5-5.7)
[2021-09-15 12:06] LABS: Albumin 3.5 g/dL (3.5-5.7); Bilirubin,Direct 0.1 mg/dL (0.0-0.2); Bilirubin,Indirect 0.2 mg/dL (0.0-1.0); Bilirubin,Total 0.3 mg/dL (0.3-1.0); Calcium 9.5 mg/dL (8.6-10.3); Globulin 3.4 g/dL (2.4-3.5); Magnesium 1.5 mg/dL (1.6-2.6); Phosphorous 3.4 mg/dL (2.7-4.5); Total Protein 6.9 g/dL (6.4-8.9)
[2021-09-15] MEDS: 0.9 % Sodium Chloride 1,000 ML IVC SCH (12:45)
[2021-09-15] MEDS: Famotidine 20 MG/2 ML VIAL IVP SCH (16:55)
[2021-09-15] MEDS: Acetaminophen 325 MG TABLET PO PRN (16:55)
[2021-09-15] MEDS: D5% in 0.9% NACL 1,000 ML IVC SCH (19:13)
[2021-09-15] MEDS ORDERED: Acetaminophen IV 1,000 MG/100 ML BAG IVPB ONE (20:42)
[2021-09-16] MEDS: Ketorolac 30 MG/ML VIAL IVP SCH ×4 (00:09→16:42)
[2021-09-16] MEDS: Acetaminophen 325 MG TABLET PO PRN (03:25)
[2021-09-16] MEDS: 0.9 % Sodium Chloride 1,000 ML IVC SCH ×2 (05:28→16:41)
[2021-09-16] MEDS: Famotidine 20 MG/2 ML VIAL IVP SCH (05:54)
[2021-09-16] MEDS: D5% in 0.9% NACL 1,000 ML IVC SCH (07:59)
[2021-09-16] MEDS: PARoxetine 10 MG TABLET PO SCH (08:00)
[2021-09-16] MEDS: Gabapentin 300 MG CAPSULE PO SCH ×2 (08:00→20:32)
[2021-09-16] MEDS: *HR* OxyCODONE/APAP 10/325 TABLET PO PRN ×2 (08:00→20:32)
[2021-09-16] MEDS: atenoloL 50 MG TABLET PO SCH (08:00)
[2021-09-16 08:49] LABS: BUN/Creatinine Ratio 25 (6-26); Blood Urea Nitrogen 25 mg/dL (8-23); Calcium 8.8 mg/dL (8.6-10.3); Carbon Dioxide 22 mEq/L (23-29); Chloride 108 mEq/L (98-107); Glucose 104 mg/dL (70-105); Osmolality,Calculated 287 (280-300); Potassium 3.5 mEq/L (3.5-5.1); Sodium 136 mEq/L (136-145); eGFR For African Americans > 60 (> 60); eGFR For Non-African Americans 54 (> 60)
[2021-09-16] MEDS: Ketorolac OPTH Soln 5 ML BOTTLE BOTH EYES SCH ×2 (09:29→20:33)
[2021-09-16 09:51] LABS: Magnesium 1.5 mg/dL (1.6-2.6); Phosphorous 3.4 mg/dL (2.7-4.5)
[2021-09-16] MEDS ORDERED: D10% in Water 500 ML IVC PRN (10:03)
[2021-09-16] MEDS ORDERED: Dextrose 4 GM Chewable Tablets PO PRN ×2 (11:18)
[2021-09-16] MEDS ORDERED: *HR* Dextrose 50 % in Water (Syg) 50 ML SYRINGE IVP PRN (11:18)
[2021-09-16] MEDS ORDERED: D5% in Water 1,000 ML IVC PRN (11:18)
[2021-09-16] MEDS: Insulin LISPRO 300 UNITS/3 ML VIAL SUBQ SCH ×3 (12:10→20:08)
[2021-09-16] MEDS ORDERED: FAT EMULSIONS IVPB SCH (17:00)
[2021-09-16] MEDS ORDERED: Clinimix E 5%-15% SOLUTION 2,000 ML with MVI, adult with vitamin K 10 ML IVC SCH (17:00)
[2021-09-17] MEDS: Insulin LISPRO 300 UNITS/3 ML VIAL SUBQ SCH ×6 (00:10→20:44)
[2021-09-17] MEDS: Ketorolac 30 MG/ML VIAL IVP SCH (00:19)
[2021-09-17 05:51] LABS: Albumin 2.9 g/dL (3.5-5.7); Albumin/Globulin Ratio 1.1 (1.1-2.2); Bilirubin,Total 0.2 mg/dL (0.3-1.0); Calcium 8.2 mg/dL (8.6-10.3); Globulin 2.6 g/dL (2.4-3.5); Magnesium 2.1 mg/dL (1.6-2.6); Phosphorous 3.8 mg/dL (2.7-4.5); Potassium 3.9 mEq/L (3.5-5.1); Total Protein 5.5 g/dL (6.4-8.9)
[2021-09-17] MEDS: *HR* OxyCODONE/APAP 10/325 TABLET PO PRN ×3 (06:21→21:54)
[2021-09-17] MEDS: Ketorolac OPTH Soln 5 ML BOTTLE BOTH EYES SCH ×2 (08:29→21:55)
[2021-09-17] MEDS: atenoloL 50 MG TABLET PO SCH (08:29)
[2021-09-17] MEDS: PARoxetine 10 MG TABLET PO SCH (08:29)
[2021-09-17] MEDS: Gabapentin 300 MG CAPSULE PO SCH ×2 (08:29→21:54)
[2021-09-17] MEDS ORDERED: Famotidine 20 MG/2 ML VIAL IVP SCH (09:00)
[2021-09-17] MEDS: 0.9 % Sodium Chloride 1,000 ML IVC SCH (12:28)
[2021-09-17] MEDS ORDERED: Clinimix E 5%-15% SOLUTION 2,000 ML IVC SCH (17:00)
[2021-09-18] MEDS: 0.9 % Sodium Chloride 1,000 ML IVC SCH (00:02)
[2021-09-18] MEDS: *HR* OxyCODONE/APAP 10/325 TABLET PO PRN ×3 (01:58→18:23)
[2021-09-18] MEDS: Insulin LISPRO 300 UNITS/3 ML VIAL SUBQ SCH ×6 (02:57→21:09)
[2021-09-18 04:54] LABS: Alanine Aminotransferase 4 Units/L (7-52); Albumin 3.1 g/dL (3.5-5.7); Albumin/Globulin Ratio 1.2 (1.1-2.2); Alkaline Phosphatase 71 Units/L (34-104); Aspartate Amino Transferase 6 Units/L (13-39); BUN/Creatinine Ratio 24 (6-26); Bilirubin,Total 0.2 mg/dL (0.3-1.0); Blood Urea Nitrogen 24 mg/dL (8-23); Calcium 8.3 mg/dL (8.6-10.3); Carbon Dioxide 21 mEq/L (23-29); Chloride 111 mEq/L (98-107); Globulin 2.6 g/dL (2.4-3.5); Glucose 115 mg/dL (70-105); Magnesium 1.8 mg/dL (1.6-2.6); Osmolality,Calculated 289 (280-300); Phosphorous 3.6 mg/dL (2.7-4.5); Potassium 3.8 mEq/L (3.5-5.1); Sodium 137 mEq/L (136-145); Total Protein 5.7 g/dL (6.4-8.9); eGFR For African Americans > 60 (> 60); eGFR For Non-African Americans 54 (> 60)
[2021-09-18] MEDS: Gabapentin 300 MG CAPSULE PO SCH ×2 (08:32→21:48)
[2021-09-18] MEDS: atenoloL 50 MG TABLET PO SCH (08:33)
[2021-09-18] MEDS: PARoxetine 10 MG TABLET PO SCH (08:33)
[2021-09-18] MEDS: Famotidine 20 MG/2 ML VIAL IVP SCH (08:33)
[2021-09-18] MEDS: Ketorolac OPTH Soln 5 ML BOTTLE BOTH EYES SCH ×2 (08:34→21:49)
[2021-09-18] MEDS ORDERED: Famotidine 20 MG/2 ML VIAL IVP SCH (09:00)
[2021-09-18] MEDS ORDERED: Clinimix E 5%-15% SOLUTION 2,000 ML IVC SCH (17:00)
[2021-09-18] MEDS: *HR* Heparin 5,000 UNIT/ML VIAL SQ SCH ×2 (17:01→21:47)
[2021-09-19] MEDS: Insulin LISPRO 300 UNITS/3 ML VIAL SUBQ SCH ×4 (00:04→12:13)
[2021-09-19 04:25] LABS: Alanine Aminotransferase 4 Units/L (7-52); Albumin 2.9 g/dL (3.5-5.7); Alkaline Phosphatase 69 Units/L (34-104); Aspartate Amino Transferase 6 Units/L (13-39); BUN/Creatinine Ratio 25 (6-26); Bilirubin,Total 0.2 mg/dL (0.3-1.0); Blood Urea Nitrogen 23 mg/dL (8-23); Calcium 8.6 mg/dL (8.6-10.3); Carbon Dioxide 22 mEq/L (23-29); Chloride 110 mEq/L (98-107); Globulin 2.8 g/dL (2.4-3.5); Glucose 104 mg/dL (70-105); Osmolality,Calculated 288 (280-300); Phosphorous 3.2 mg/dL (2.7-4.5); Potassium 4.1 mEq/L (3.5-5.1); Sodium 137 mEq/L (136-145); Total Protein 5.7 g/dL (6.4-8.9); eGFR For African Americans > 60 (> 60); eGFR For Non-African Americans 60 (> 60)
[2021-09-19] MEDS: Nystatin POWDER 30 GM BOTTLE TP SCH ×2 (04:53→08:40)
[2021-09-19] MEDS: *HR* Heparin 5,000 UNIT/ML VIAL SQ SCH ×2 (05:45→22:23)
[2021-09-19] MEDS: *HR* OxyCODONE/APAP 10/325 TABLET PO PRN (08:37)
[2021-09-19] MEDS: Gabapentin 300 MG CAPSULE PO SCH (08:40)
[2021-09-19] MEDS: Ketorolac OPTH Soln 5 ML BOTTLE BOTH EYES SCH (08:40)
[2021-09-19] MEDS: atenoloL 50 MG TABLET PO SCH (08:41)
[2021-09-19] MEDS: PARoxetine 10 MG TABLET PO SCH (08:41)
[2021-09-19] MEDS: Famotidine 20 MG/2 ML VIAL IVP SCH (08:42)
[2021-09-19] MEDS ORDERED: *HR* HYDROmorphone PF 0.5 MG/0.5 ML SYRINGE IVP PRN (12:33)
[2021-09-19] MEDS ORDERED: Ondansetron 4 MG/2 ML VIAL IVP PRN ×2 (12:33→21:08)
[2021-09-19] MEDS ORDERED: *HR* Propofol 200 MG/20 ML VIAL IVP ONE (13:58)
[2021-09-19] MEDS ORDERED: Ondansetron 4 MG/2 ML VIAL ONE (13:58)
[2021-09-19] MEDS ORDERED: *HR* FentaNYL (PF) 100 MCG/2 ML VIAL ONE ×2 (13:58→16:25)
[2021-09-19] MEDS ORDERED: Lidocaine -MPF 2% 5 ML VIAL ONE (13:58)
[2021-09-19] MEDS ORDERED: Lidocaine -MPF 4% 5 ML AMPUL ONE (13:58)
[2021-09-19] MEDS ORDERED: *HR* Rocuronium Bromide 50 MG/5 ML VIAL ONE ×2 (13:58→17:13)
[2021-09-19] MEDS ORDERED: CefOXitin 2,000 MG VIAL ONE (16:04)
[2021-09-19] MEDS ORDERED: *HR* Remifentanil 1 MG VIAL IVP ONE (16:32)
[2021-09-19] MEDS ORDERED: Clinimix E 5%-15% SOLUTION 2,000 ML with MVI, adult with vitamin K 10 ML IVC SCH ×2 (17:00→21:08)
[2021-09-19] MEDS ORDERED: *HR* Labetalol 20 MG/4 ML SYRINGE IVP ONE (17:15)
[2021-09-19] MEDS ORDERED: Sugammadex Sodium 200 MG/2 ML VIAL IV ONE (19:15)
[2021-09-19] MEDS ORDERED: *HR* HYDROMORPHONE 2 MG/ML VIAL ONE (19:18)
[2021-09-19] MEDS ORDERED: *HR* HYDROmorphone PCA *PREMADE* 20 MG/1MG/ML (20mL) PCA VIAL IVC PRN ×2 (19:48→21:08)
[2021-09-19] MEDS: *HR* HYDROmorphone PF 0.5 MG/0.5 ML SYRINGE IVP PRN ×2 (19:54→20:18)
[2021-09-19] MEDS ORDERED: Acetaminophen IV 1,000 MG/100 ML BAG IVPB ONE (20:09)
[2021-09-19] MEDS ORDERED: Ketorolac 30 MG/ML VIAL IVP ONE (20:09)
[2021-09-19] MEDS ORDERED: D10% in Water 500 ML IVC PRN (21:08)
[2021-09-19] MEDS ORDERED: *HR* Metoprolol 5 MG/5 ML VIAL IVP PRN (21:08)
[2021-09-19] MEDS ORDERED: D5% in Water 1,000 ML IVC PRN (21:08)
[2021-09-19] MEDS ORDERED: 0.9 % Sodium Chloride 1,000 ML IVC SCH (21:08)
[2021-09-19] MEDS ORDERED: Perflutren Lipid Microsphere 1.3 ML in 0.9 % Sodium Chloride 8.7 ML IVP PRN (21:08)
[2021-09-19] MEDS ORDERED: Naloxone 0.4 MG/ML INJ IVP PRN (21:08)
[2021-09-19] MEDS ORDERED: *HR* Dextrose 50 % in Water (Syg) 50 ML SYRINGE IVP PRN (21:08)
[2021-09-19] MEDS ORDERED: Dextrose 4 GM Chewable Tablets PO PRN ×2 (21:08)
[2021-09-20] MEDS: Insulin LISPRO 300 UNITS/3 ML VIAL SUBQ SCH ×6 (02:13→21:47)
[2021-09-20 03:24] LABS: Albumin/Globulin Ratio 1.2 (1.1-2.2); Bilirubin,Total 0.2 mg/dL (0.3-1.0); Calcium 8.5 mg/dL (8.6-10.3); Globulin 2.5 g/dL (2.4-3.5); Magnesium 1.7 mg/dL (1.6-2.6); Phosphorous 3.4 mg/dL (2.7-4.5); Potassium 4.7 mEq/L (3.5-5.1); Total Protein 5.5 g/dL (6.4-8.9)
[2021-09-20] MEDS: *HR* Heparin 5,000 UNIT/ML VIAL SQ SCH ×3 (05:09→21:45)
[2021-09-20] MEDS ORDERED: Pantoprazole 40 MG VIAL IVP SCH (09:00)
[2021-09-20] MEDS: Gabapentin 300 MG CAPSULE PO SCH ×2 (10:35→21:43)
[2021-09-20] MEDS: atenoloL 50 MG TABLET PO SCH (10:35)
[2021-09-20] MEDS: Ketorolac OPTH Soln 5 ML BOTTLE BOTH EYES SCH ×2 (10:41→21:45)
[2021-09-20] MEDS: Nystatin POWDER 30 GM BOTTLE TP SCH ×2 (10:42→21:46)
[2021-09-20] MEDS: Orphenadrine 60 MG/2 ML VIAL IVP PRN (16:38)
[2021-09-20] MEDS ORDERED: 0.9 % Sodium Chloride 500 ML ONE (16:43)
[2021-09-20] MEDS ORDERED: Clinimix E 5%-15% SOLUTION 2,000 ML IVC SCH (17:00)
[2021-09-21] MEDS: Insulin LISPRO 300 UNITS/3 ML VIAL SUBQ SCH ×6 (00:20→20:26)
[2021-09-21 02:51] LABS: Basophils % 0.1 %; Hematocrit 22.5 % (35.3-44.9); Immature Granulocytes % 0.7 % (0-4); Lymphocytes # 1.2 K/mcL (0.6-4.6); Lymphocytes % 6.1 %; Mean Corpuscular HGB Conc 33.3 g/dL (31.6-35.5); Monocytes # 0.7 K/mcL (0.0-1.3); Monocytes % 3.5 %; Neutrophils # 17.2 K/mcL (1.6-8.9); Platelet Count 238 K/mcL (140-400); Red Blood Count 2.42 M/mcL (3.82-4.97); Red Cell Distribution Width 13.2 % (11.5-14.5); Segmented Neutrophils % 89.6 %
[2021-09-21 02:54] LABS: Hemoglobin 7.5 g/dL (11.5-15.4); White Blood Count 19.2 K/mcL (4.3-11.1)
[2021-09-21 03:04] LABS: Alanine Aminotransferase 7 Units/L (7-52); Albumin/Globulin Ratio 1.1 (1.1-2.2); Alkaline Phosphatase 60 Units/L (34-104); Aspartate Amino Transferase 9 Units/L (13-39); BUN/Creatinine Ratio 36 (6-26); Bilirubin,Total 0.2 mg/dL (0.3-1.0); Blood Urea Nitrogen 36 mg/dL (8-23); Calcium 9.2 mg/dL (8.6-10.3); Carbon Dioxide 23 mEq/L (23-29); Chloride 105 mEq/L (98-107); Globulin 2.7 g/dL (2.4-3.5); Glucose 155 mg/dL (70-105); Magnesium 1.8 mg/dL (1.6-2.6); Osmolality,Calculated 295 (280-300); Phosphorous 3.5 mg/dL (2.7-4.5); Potassium 4.5 mEq/L (3.5-5.1); Sodium 137 mEq/L (136-145); Total Protein 5.7 g/dL (6.4-8.9); eGFR For African Americans > 60 (> 60); eGFR For Non-African Americans 55 (> 60)
[2021-09-21] MEDS: *HR* Heparin 5,000 UNIT/ML VIAL SQ SCH ×3 (06:21→22:26)
[2021-09-21] MEDS: Pantoprazole 40 MG VIAL IVP SCH ×2 (07:57→18:02)
[2021-09-21] MEDS: Nystatin POWDER 30 GM BOTTLE TP SCH ×2 (07:58→22:26)
[2021-09-21] MEDS: Ketorolac OPTH Soln 5 ML BOTTLE BOTH EYES SCH ×2 (07:58→22:26)
[2021-09-21] MEDS: Gabapentin 300 MG CAPSULE PO SCH (07:59)
[2021-09-21] MEDS ORDERED: 0.9 % Sodium Chloride 500 ML ONE (14:56)
[2021-09-21] MEDS ORDERED: Clinimix E 5%-15% SOLUTION 2,000 ML with MVI, adult with vitamin K 10 ML IVC SCH (17:00)
[2021-09-21] MEDS ORDERED: Pantoprazole 40 MG VIAL IVP SCH (18:00)
[2021-09-22] MEDS: Insulin LISPRO 300 UNITS/3 ML VIAL SUBQ SCH ×6 (00:42→21:43)
[2021-09-22] MEDS: Orphenadrine 60 MG/2 ML VIAL IVP PRN ×2 (01:05→17:21)
[2021-09-22 05:04] LABS: Basophils % 0.1 %; Eosinophils % 0.2 %; Hematocrit 19.4 % (35.3-44.9); Hemoglobin 6.4 g/dL (11.5-15.4); Immature Granulocytes % 0.6 % (0-4); Lymphocytes # 1.9 K/mcL (0.6-4.6); Lymphocytes % 16.9 %; Mean Corpuscular Hemoglobin 31.5 pg (28.0-33.3); Mean Corpuscular Volume 95.6 fL (83.0-100.0); Mean Platelet Volume 9.6 fL (9.4-12.4); Monocytes # 0.6 K/mcL (0.0-1.3); Monocytes % 5.3 %; Neutrophils # 8.6 K/mcL (1.6-8.9); Platelet Count 191 K/mcL (140-400); Red Blood Count 2.03 M/mcL (3.82-4.97); Red Cell Distribution Width 13.4 % (11.5-14.5); Segmented Neutrophils % 76.9 %; White Blood Count 11.2 K/mcL (4.3-11.1)
[2021-09-22 05:35] LABS: Alanine Aminotransferase 8 Units/L (7-52); Albumin 2.8 g/dL (3.5-5.7); Albumin/Globulin Ratio 1.1 (1.1-2.2); Alkaline Phosphatase 50 Units/L (34-104); Aspartate Amino Transferase 14 Units/L (13-39); BUN/Creatinine Ratio 43 (6-26); Bilirubin,Total 0.2 mg/dL (0.3-1.0); Blood Urea Nitrogen 35 mg/dL (8-23); Calcium 8.8 mg/dL (8.6-10.3); Carbon Dioxide 26 mEq/L (23-29); Chloride 104 mEq/L (98-107); Globulin 2.5 g/dL (2.4-3.5); Glucose 117 mg/dL (70-105); Magnesium 1.5 mg/dL (1.6-2.6); Osmolality,Calculated 295 (280-300); Phosphorous 3.3 mg/dL (2.7-4.5); Potassium 3.8 mEq/L (3.5-5.1); Sodium 138 mEq/L (136-145); Total Protein 5.3 g/dL (6.4-8.9); eGFR For African Americans > 60 (> 60); eGFR For Non-African Americans > 60 (> 60)
[2021-09-22] MEDS: *HR* Heparin 5,000 UNIT/ML VIAL SQ SCH (06:04)
[2021-09-22] MEDS: Pantoprazole 40 MG VIAL IVP SCH ×2 (06:04→17:20)
[2021-09-22] MEDS ORDERED: Furosemide 20 MG/2 ML VIAL IVP ONE (06:44)
[2021-09-22] MEDS ORDERED: 0.9 % Sodium Chloride 250 ML IVC SCH (06:45)
[2021-09-22] MEDS: Nystatin POWDER 30 GM BOTTLE TP SCH ×2 (08:05→21:50)
[2021-09-22] MEDS ORDERED: *HR* LORazepam 2 MG/ML VIAL IVP PRN (09:40)
[2021-09-22] MEDS: Ketorolac OPTH Soln 5 ML BOTTLE BOTH EYES SCH ×2 (13:11→21:51)
[2021-09-22] MEDS ORDERED: Clinimix E 5%-15% SOLUTION 2,000 ML with ZN/CU/MN/SE 1 ML IVC SCH (17:00)
[2021-09-22] MEDS: Acetaminophen IV 1,000 MG/100 ML BAG IVPB SCH (21:51)
[2021-09-23] MEDS: Insulin LISPRO 300 UNITS/3 ML VIAL SUBQ SCH ×6 (00:54→21:13)
[2021-09-23 04:37] LABS: Basophils % 0.2 %; Eosinophils # 0.1 K/mcL (0.0-0.6); Eosinophils % 0.5 %; Hematocrit 24.9 % (35.3-44.9); Immature Granulocytes % 0.6 % (0-4); Mean Corpuscular HGB Conc 32.5 g/dL (31.6-35.5); Mean Corpuscular Hemoglobin 33.8 pg (28.0-33.3); Mean Platelet Volume 9.9 fL (9.4-12.4); Monocytes # 0.4 K/mcL (0.0-1.3); Monocytes % 4.1 %; Neutrophils # 8.6 K/mcL (1.6-8.9); Platelet Count 164 K/mcL (140-400); Red Cell Distribution Width 17.3 % (11.5-14.5); Segmented Neutrophils % 84.6 %; White Blood Count 10.2 K/mcL (4.3-11.1)
[2021-09-23 04:55] LABS: Hemoglobin 8.1 g/dL (11.5-15.4); Mean Corpuscular Volume 103.8 fL (83.0-100.0)
[2021-09-23] MEDS: Acetaminophen IV 1,000 MG/100 ML BAG IVPB SCH ×4 (05:43→23:52)
[2021-09-23] MEDS: Pantoprazole 40 MG VIAL IVP SCH ×2 (05:44→18:08)
[2021-09-23 06:20] LABS: Alanine Aminotransferase 89 Units/L (7-52); Albumin 3.1 g/dL (3.5-5.7); Albumin/Globulin Ratio 1.1 (1.1-2.2); Alkaline Phosphatase 78 Units/L (34-104); Aspartate Amino Transferase 100 Units/L (13-39); BUN/Creatinine Ratio 39 (6-26); Bilirubin,Total 0.3 mg/dL (0.3-1.0); Blood Urea Nitrogen 36 mg/dL (8-23); Calcium 8.8 mg/dL (8.6-10.3); Carbon Dioxide 30 mEq/L (23-29); Chloride 100 mEq/L (98-107); Globulin 2.7 g/dL (2.4-3.5); Glucose 101 mg/dL (70-105); Magnesium 1.7 mg/dL (1.6-2.6); Osmolality,Calculated 292 (280-300); Phosphorous 4.2 mg/dL (2.7-4.5); Potassium 3.7 mEq/L (3.5-5.1); Sodium 137 mEq/L (136-145); Total Protein 5.8 g/dL (6.4-8.9); eGFR For African Americans > 60 (> 60); eGFR For Non-African Americans > 60 (> 60)
[2021-09-23] MEDS ORDERED: ALPRAZolam 0.5 MG TABLET PO PRN (06:54)
[2021-09-23] MEDS: Gabapentin 300 MG CAPSULE PO SCH ×2 (07:11→21:13)
[2021-09-23] MEDS: atenoloL 50 MG TABLET PO SCH (07:11)
[2021-09-23] MEDS: Ketorolac OPTH Soln 5 ML BOTTLE BOTH EYES SCH ×2 (07:12→21:19)
[2021-09-23] MEDS: Nystatin POWDER 30 GM BOTTLE TP SCH ×2 (07:13→21:19)
[2021-09-23] MEDS: allopurinoL 100 MG TABLET PO SCH (07:39)
[2021-09-23] MEDS ORDERED: Clinimix E 5%-15% SOLUTION 2,000 ML with MVI, adult with vitamin K 10 ML, ZN/CU/MN/SE... IVC SCH (17:00)
[2021-09-24] MEDS: Insulin LISPRO 300 UNITS/3 ML VIAL SUBQ SCH ×6 (00:31→20:13)
[2021-09-24] MEDS: Pantoprazole 40 MG VIAL IVP SCH ×2 (05:39→18:36)
[2021-09-24] MEDS: Acetaminophen IV 1,000 MG/100 ML BAG IVPB SCH ×3 (05:40→18:37)
[2021-09-24] MEDS: Ketorolac OPTH Soln 5 ML BOTTLE BOTH EYES SCH ×2 (10:45→20:14)
[2021-09-24] MEDS: Gabapentin 300 MG CAPSULE PO SCH ×2 (10:46→20:14)
[2021-09-24] MEDS: allopurinoL 100 MG TABLET PO SCH (10:46)
[2021-09-24] MEDS: Nystatin POWDER 30 GM BOTTLE TP SCH ×2 (10:46→20:14)
[2021-09-24] MEDS: atenoloL 50 MG TABLET PO SCH (10:46)
[2021-09-24 11:28] LABS: Alanine Aminotransferase 52 Units/L (7-52); Albumin 2.9 g/dL (3.5-5.7); Albumin/Globulin Ratio 1.2 (1.1-2.2); Alkaline Phosphatase 73 Units/L (34-104); Aspartate Amino Transferase 24 Units/L (13-39); BUN/Creatinine Ratio 38 (6-26); Bilirubin,Total 0.2 mg/dL (0.3-1.0); Blood Urea Nitrogen 36 mg/dL (8-23); Calcium 8.2 mg/dL (8.6-10.3); Carbon Dioxide 29 mEq/L (23-29); Chloride 101 mEq/L (98-107); Globulin 2.5 g/dL (2.4-3.5); Glucose 104 mg/dL (70-105); Magnesium 1.8 mg/dL (1.6-2.6); Osmolality,Calculated 287 (280-300); Phosphorous 3.6 mg/dL (2.7-4.5); Potassium 4.4 mEq/L (3.5-5.1); Sodium 134 mEq/L (136-145); Total Protein 5.4 g/dL (6.4-8.9); Triglycerides 123 mg/dL (< 150); eGFR For African Americans > 60 (> 60); eGFR For Non-African Americans 57 (> 60)
[2021-09-24] MEDS ORDERED: Clinimix E 5%-15% SOLUTION 2,000 ML with ZN/CU/MN/SE 1 ML IVC SCH (17:00)
[2021-09-25] MEDS: Acetaminophen IV 1,000 MG/100 ML BAG IVPB SCH (00:22)
[2021-09-25] MEDS: Insulin LISPRO 300 UNITS/3 ML VIAL SUBQ SCH ×6 (00:24→20:44)
[2021-09-25] MEDS: Pantoprazole 40 MG VIAL IVP SCH ×2 (05:45→16:37)
[2021-09-25 07:08] LABS: Basophils % 0.4 %; Eosinophils # 0.3 K/mcL (0.0-0.6); Eosinophils % 3.9 %; Hematocrit 26.5 % (35.3-44.9); Hemoglobin 8.4 g/dL (11.5-15.4); Immature Granulocytes % 1.2 % (0-4); Lymphocytes # 1.7 K/mcL (0.6-4.6); Lymphocytes % 19.4 %; Mean Corpuscular HGB Conc 31.7 g/dL (31.6-35.5); Mean Corpuscular Hemoglobin 29.7 pg (28.0-33.3); Mean Platelet Volume 9.7 fL (9.4-12.4); Monocytes # 0.6 K/mcL (0.0-1.3); Monocytes % 7.5 %; Neutrophils # 5.8 K/mcL (1.6-8.9); Platelet Count 159 K/mcL (140-400); Red Blood Count 2.83 M/mcL (3.82-4.97); Red Cell Distribution Width 16.4 % (11.5-14.5); Segmented Neutrophils % 67.6 %; White Blood Count 8.5 K/mcL (4.3-11.1)
[2021-09-25] MEDS: Gabapentin 300 MG CAPSULE PO SCH ×2 (07:30→19:30)
[2021-09-25] MEDS: atenoloL 50 MG TABLET PO SCH (07:30)
[2021-09-25] MEDS: allopurinoL 100 MG TABLET PO SCH (07:30)
[2021-09-25 07:31] LABS: Mean Corpuscular Volume 93.6 fL (83.0-100.0)
[2021-09-25] MEDS: Ketorolac OPTH Soln 5 ML BOTTLE BOTH EYES SCH ×2 (07:31→19:30)
[2021-09-25] MEDS: Nystatin POWDER 30 GM BOTTLE TP SCH ×2 (07:31→19:30)
[2021-09-25 08:50] LABS: Alanine Aminotransferase 36 Units/L (7-52); Albumin 2.9 g/dL (3.5-5.7); Albumin/Globulin Ratio 1.2 (1.1-2.2); Alkaline Phosphatase 71 Units/L (34-104); Aspartate Amino Transferase 13 Units/L (13-39); BUN/Creatinine Ratio 38 (6-26); Bilirubin,Total 0.2 mg/dL (0.3-1.0); Blood Urea Nitrogen 39 mg/dL (8-23); Calcium 8.4 mg/dL (8.6-10.3); Carbon Dioxide 26 mEq/L (23-29); Chloride 103 mEq/L (98-107); Glucose 145 mg/dL (70-105); Magnesium 1.9 mg/dL (1.6-2.6); Osmolality,Calculated 292 (280-300); Phosphorous 3.9 mg/dL (2.7-4.5); Potassium 4.2 mEq/L (3.5-5.1); Sodium 135 mEq/L (136-145); Total Protein 5.4 g/dL (6.4-8.9); eGFR For African Americans > 60 (> 60); eGFR For Non-African Americans 54 (> 60)
[2021-09-25 08:51] LABS: Globulin 2.5 g/dL (2.4-3.5)
[2021-09-25] MEDS ORDERED: Clinimix E 5%-15% SOLUTION 2,000 ML with ZN/CU/MN/SE 1 ML IVC SCH (17:00)
[2021-09-26] MEDS: Insulin LISPRO 300 UNITS/3 ML VIAL SUBQ SCH ×3 (04:02→09:29)
[2021-09-26 04:28] LABS: Albumin 2.6 g/dL (3.5-5.7); Bilirubin,Total 0.2 mg/dL (0.3-1.0); Calcium 8.4 mg/dL (8.6-10.3); Globulin 2.6 g/dL (2.4-3.5); Magnesium 1.9 mg/dL (1.6-2.6); Phosphorous 3.2 mg/dL (2.7-4.5); Potassium 4.3 mEq/L (3.5-5.1); Total Protein 5.2 g/dL (6.4-8.9)
[2021-09-26] MEDS: Pantoprazole 40 MG VIAL IVP SCH (04:58)
[2021-09-26] MEDS: Gabapentin 300 MG CAPSULE PO SCH (09:33)
[2021-09-26] MEDS: atenoloL 50 MG TABLET PO SCH (09:33)
[2021-09-26] MEDS: allopurinoL 100 MG TABLET PO SCH (09:34)
[2021-09-26] MEDS: Ketorolac OPTH Soln 5 ML BOTTLE BOTH EYES SCH (09:37)
[2021-09-26] MEDS: Nystatin POWDER 30 GM BOTTLE TP SCH (09:37)
[2021-09-26 11:21] VITALS: BP 121/69; PULSE 63; TEMP 98.3; O2SAT 98
== END 2021-09-26 15:44 | disposition home health service (06) | DRG 329 ==
LOC: 3ANU
PROVIDERS: ADMIT Surgery; ATTEND Surgery

== ENCOUNTER 2022-01-12 14:04 | Inpatient (IN) ==
[2022-01-12 15:33] LABS: Amphetamine Screen,Urine Negative ng/mL (Cutoff=1000); Barbiturate Screen,Urine Negative ng/mL (Cutoff=200); Benzodiazepines Screen,Urine Negative ng/mL (Cutoff=200); Cannabinoid Screen,Urine Negative ng/mL (Cutoff = 50); Cocaine Screen,Urine Negative ng/mL (Cutoff= 300); Opiate Screen,Urine Positive ng/mL (Cutoff=300); Phencyclidine Screen,Urine Negative ng/mL (Cutoff=25)
[2022-01-12 15:37] LABS: Bilirubin,Urine Negative (Negative); Blood,Urine Negative (Negative); Clarity,Urine Clear (Clear); Color,Urine Colorless (Yellow); Glucose,Urine (UA) Normal (Normal); Ketones,Urine Negative (Negative); Leukocyte Esterase,Urine Small (Negative); Nitrite,Urine Negative (Negative); Protein,Urine Negative (Neg-Trace); RBC,Urine 0-3 per hpf (0-3); Specific Gravity,Urine 1.009 (1.010-1.025); Squamous Epithelial Cell,Urine Few per hpf (None-Few); Transitional Epi Cells,Urine Few per hpf (None-Few); Urobilinogen,Urine Normal (Normal); WBC,Urine 0-3 per hpf (0-3)
[2022-01-12 15:39] LABS: Basophils % 0.3 %; Eosinophils # 0.2 K/mcL (0.0-0.6); Eosinophils % 2.1 %; Hematocrit 24.3 % (35.3-44.9); Hemoglobin 7.9 g/dL (11.5-15.4); Immature Granulocytes % 0.3 % (0-4); Lymphocytes # 0.9 K/mcL (0.6-4.6); Lymphocytes % 12.6 %; Mean Corpuscular HGB Conc 32.5 g/dL (31.6-35.5); Mean Corpuscular Volume 95.3 fL (83.0-100.0); Mean Platelet Volume 9.2 fL (9.4-12.4); Monocytes # 0.4 K/mcL (0.0-1.3); Monocytes % 5.5 %; Neutrophils # 5.6 K/mcL (1.6-8.9); Platelet Count 293 K/mcL (140-400); Red Blood Count 2.55 M/mcL (3.82-4.97); Red Cell Distribution Width 15.2 % (11.5-14.5); Segmented Neutrophils % 79.2 %; White Blood Count 7.1 K/mcL (4.3-11.1)
[2022-01-12 15:59] LABS: INR 1.1; Prothrombin Time 11.9 Seconds (9.4-12.1)
[2022-01-12 16:00] LABS: Alanine Aminotransferase 8 Units/L (7-52); Albumin 3.6 g/dL (3.5-5.7); Albumin/Globulin Ratio 1.1 (1.1-2.2); Alkaline Phosphatase 105 Units/L (34-104); Aspartate Amino Transferase 12 Units/L (13-39); BUN/Creatinine Ratio 36 (6-26); Bilirubin,Direct 0.1 mg/dL (0.0-0.2); Bilirubin,Indirect 0.2 mg/dL (0.0-1.0); Bilirubin,Total 0.3 mg/dL (0.3-1.0); Blood Urea Nitrogen 42 mg/dL (8-23); Calcium 9.8 mg/dL (8.6-10.3); Carbon Dioxide 28 mEq/L (23-29); Chloride 104 mEq/L (98-107); Creatine Kinase 63 Units/L (30-223); Ethanol < 10 mg/dL (Less than 10); Globulin 3.4 g/dL (2.4-3.5); Glucose 89 mg/dL (70-105); Osmolality,Calculated 300 (280-300); Potassium 4.5 mEq/L (3.5-5.1); Sodium 140 mEq/L (136-145); Troponin I < 0.03 ng/mL (< 0.04); eGFR For African Americans 55 (> 60); eGFR For Non-African Americans 45 (> 60)
[2022-01-12 16:09] LABS: ABG Base Excess 2 mEq/L (-2 to 3); ABG HCO3 26 mEq/L (21-27); ABG Oxygen Saturation 99 % (95-98); ABG PCO2 39 mmHg (35-45); ABG PH 7.44 pH Units (7.32-7.45); ABG PO2 141 mmHg (85-104); ABG TCO2 27 mEq/L (20-26)
[2022-01-12] MEDS ORDERED: Furosemide 40 MG/4 ML VIAL IVP ONE (16:18)
[2022-01-12] MEDS ORDERED: Naloxone 0.4 MG/ML INJ IVP PRN (17:18)
[2022-01-12] MEDS ORDERED: Perflutren Lipid Microsphere 1.3 ML in 0.9 % Sodium Chloride 8.7 ML IVP PRN (17:27)
[2022-01-12] MEDS: *HR* Heparin 5,000 UNIT/ML VIAL SQ SCH (19:47)
[2022-01-12 20:50] LABS: Folate 5.2 ng/mL (3.0-16.0)
[2022-01-12] MEDS ORDERED: Gabapentin 300 MG CAPSULE PO SCH (21:00)
[2022-01-13 03:49] LABS: Hematocrit 24.7 % (35.3-44.9); Mean Corpuscular HGB Conc 32.4 g/dL (31.6-35.5); Mean Corpuscular Volume 95.7 fL (83.0-100.0); Mean Platelet Volume 9.4 fL (9.4-12.4); Platelet Count 312 K/mcL (140-400); Red Blood Count 2.58 M/mcL (3.82-4.97); Red Cell Distribution Width 15.4 % (11.5-14.5); White Blood Count 6.4 K/mcL (4.3-11.1)
[2022-01-13 03:50] LABS: Immature Reticulocyte % 13.7 % (11.0-38.0); Retculocyte # 0.07 M/mcL (0.05-0.10); Reticulocyte % 2.9 % (1.6-2.8)
[2022-01-13 04:11] LABS: % Iron Saturation 14 % (15-50); Iron 46 mcg/dL (50-170); Transferrin 238 mg/dL (203-362)
[2022-01-13 04:15] LABS: Calcium 9.7 mg/dL (8.6-10.3); Magnesium 1.9 mg/dL (1.6-2.6); Potassium 4.1 mEq/L (3.5-5.1)
[2022-01-13 04:29] LABS: Ferritin 131 ng/mL (10-120)
[2022-01-13] MEDS: *HR* Heparin 5,000 UNIT/ML VIAL SQ SCH ×3 (05:32→17:18)
[2022-01-13] MEDS: Furosemide 40 MG/4 ML VIAL IVP SCH (07:59)
[2022-01-13] MEDS ORDERED: NON-FORMULARY MEDICATION 1 EACH EACH (Omeprazole 20 MG Tablet.Dr) PO SCH (09:00)
[2022-01-13] MEDS ORDERED: predniSONE 20 MG TABLET PO ONE (09:28)
[2022-01-13] MEDS ORDERED: Cyanocobalamin (B-12) 1,000 MCG/ML VIAL IM ONE (09:45)
[2022-01-13] MEDS: Acetaminophen 325 MG TABLET PO PRN ×2 (10:59→23:48)
[2022-01-13 18:03] LABS: Bacteria,Urine Few per hpf (None-Few); Bilirubin,Urine Negative (Negative); Blood,Urine Trace (Negative); Clarity,Urine Clear (Clear); Color,Urine Colorless (Yellow); Glucose,Urine (UA) Normal (Normal); Hyaline Casts,Urine Few per lpf (None Seen); Ketones,Urine Negative (Negative); Leukocyte Esterase,Urine Moderate (Negative); Nitrite,Urine Negative (Negative); Protein,Urine Negative (Neg-Trace); RBC,Urine 0-3 per hpf (0-3); Urobilinogen,Urine Normal (Normal); WBC,Urine 15-30 per hpf (0-3)
[2022-01-13] MEDS: atenoloL 50 MG TABLET PO SCH (19:54)
[2022-01-14 05:41] LABS: Hematocrit 24.6 % (35.3-44.9); Hemoglobin 8.2 g/dL (11.5-15.4); Mean Corpuscular HGB Conc 33.3 g/dL (31.6-35.5); Mean Corpuscular Volume 96.1 fL (83.0-100.0); Mean Platelet Volume 10.8 fL (9.4-12.4); Platelet Count 251 K/mcL (140-400); Red Blood Count 2.56 M/mcL (3.82-4.97); Red Cell Distribution Width 15.3 % (11.5-14.5); White Blood Count 7.7 K/mcL (4.3-11.1)
[2022-01-14] MEDS: *HR* Heparin 5,000 UNIT/ML VIAL SQ SCH ×2 (05:43→16:08)
[2022-01-14] MEDS: Acetaminophen 325 MG TABLET PO PRN ×2 (05:47→18:31)
[2022-01-14 05:48] LABS: INR 1.1; Prothrombin Time 12.2 Seconds (9.4-12.1)
[2022-01-14 05:51] LABS: Activated Partial Thrombo Time 27.1 Seconds (26.0-36.0)
[2022-01-14 05:57] LABS: Calcium 9.3 mg/dL (8.6-10.3); Potassium 4.4 mEq/L (3.5-5.1)
[2022-01-14] MEDS: Furosemide 40 MG/4 ML VIAL IVP SCH (08:28)
[2022-01-14] MEDS: atenoloL 50 MG TABLET PO SCH (08:29)
[2022-01-14] MEDS: predniSONE 20 MG TABLET PO SCH (11:48)
[2022-01-14] MEDS: *HR* OxyCODONE Immed Rel 5 MG TABLET PO PRN ×2 (16:08→22:08)
[2022-01-14] MEDS ORDERED: Albumin 25% 25gram/100mL 25 GM/100 ML IV.SOLN IVPB ONE (22:07)
[2022-01-15] MEDS: Acetaminophen 325 MG TABLET PO PRN ×4 (00:32→21:40)
[2022-01-15] MEDS: cefTRIAXone 1,000 MG in 0.9 % Sodium Chloride 10 ML IVP SCH ×2 (00:59→08:33)
[2022-01-15] MEDS: *HR* OxyCODONE Immed Rel 5 MG TABLET PO PRN ×4 (04:28→23:55)
[2022-01-15] MEDS: *HR* Heparin 5,000 UNIT/ML VIAL SQ SCH ×2 (04:28→16:40)
[2022-01-15 06:48] LABS: Potassium 4.3 mEq/L (3.5-5.1)
[2022-01-15] MEDS: atenoloL 50 MG TABLET PO SCH (08:31)
[2022-01-15] MEDS: predniSONE 20 MG TABLET PO SCH (08:31)
[2022-01-15] MEDS: Gabapentin 300 MG CAPSULE PO SCH ×3 (08:31→21:40)
[2022-01-15] MEDS: Ampicillin 2,000 MG in 0.9 % Sodium Chloride Mini Bag 100 ML IVPB SCH ×3 (11:45→21:39)
[2022-01-16] MEDS: Ampicillin 2,000 MG in 0.9 % Sodium Chloride Mini Bag 100 ML IVPB SCH ×4 (02:48→20:45)
[2022-01-16 04:00] LABS: Potassium 4.2 mEq/L (3.5-5.1)
[2022-01-16] MEDS: *HR* Heparin 5,000 UNIT/ML VIAL SQ SCH ×2 (06:59→17:52)
[2022-01-16] MEDS: *HR* OxyCODONE Immed Rel 5 MG TABLET PO PRN ×3 (06:59→20:45)
[2022-01-16] MEDS: Gabapentin 300 MG CAPSULE PO SCH ×3 (08:52→20:45)
[2022-01-16] MEDS: atenoloL 50 MG TABLET PO SCH (08:54)
[2022-01-16] MEDS: Acetaminophen 325 MG TABLET PO PRN (18:40)
[2022-01-16] MEDS ORDERED: Perflutren Lipid Microsphere 1.3 ML in 0.9 % Sodium Chloride 8.7 ML IVP PRN (19:49)
[2022-01-17] MEDS: Ampicillin 2,000 MG in 0.9 % Sodium Chloride Mini Bag 100 ML IVPB SCH ×4 (02:45→18:00)
[2022-01-17] MEDS: *HR* OxyCODONE Immed Rel 5 MG TABLET PO PRN ×3 (02:46→19:47)
[2022-01-17] MEDS: *HR* Heparin 5,000 UNIT/ML VIAL SQ SCH ×2 (05:11→17:58)
[2022-01-17] MEDS ORDERED: Regadenoson 0.4 MG/5 ML SYRINGE IVP ONE (06:59)
[2022-01-17] MEDS: atenoloL 50 MG TABLET PO SCH (11:03)
[2022-01-17] MEDS: allopurinoL 100 MG TABLET PO SCH (11:03)
[2022-01-17] MEDS: Gabapentin 100 MG CAPSULE PO SCH ×3 (11:03→19:47)
[2022-01-17] MEDS ORDERED: Nitroglycerin 0.4 MG TAB.SUBL SL PRN (12:11)
[2022-01-17] MEDS: 0.9 % Sodium Chloride 1,000 ML IVC SCH ×2 (12:44→22:59)
[2022-01-17] MEDS: Aspirin 81 MG TAB.CHEW PO SCH (12:45)
[2022-01-17] MEDS: Acetaminophen 325 MG TABLET PO PRN ×2 (16:25→22:32)
[2022-01-17 18:16] LABS: Basophils % 0.2 %; Eosinophils # 0.2 K/mcL (0.0-0.6); Eosinophils % 1.8 %; Hematocrit 26.2 % (35.3-44.9); Hematocrit 26.7 % (35.3-44.9); Hemoglobin 8.7 g/dL (11.5-15.4); Hemoglobin 8.8 g/dL (11.5-15.4); Immature Granulocytes % 0.4 % (0-4); Lymphocytes # 1.4 K/mcL (0.6-4.6); Lymphocytes % 15.3 %; Mean Corpuscular HGB Conc 33.2 g/dL (31.6-35.5); Mean Corpuscular Hemoglobin 31.6 pg (28.0-33.3); Mean Corpuscular Hemoglobin 31.8 pg (28.0-33.3); Mean Corpuscular Volume 95.3 fL (83.0-100.0); Mean Corpuscular Volume 96.4 fL (83.0-100.0); Mean Platelet Volume 9.1 fL (9.4-12.4); Mean Platelet Volume 9.3 fL (9.4-12.4); Monocytes # 0.6 K/mcL (0.0-1.3); Monocytes % 6.8 %; Neutrophils # 6.9 K/mcL (1.6-8.9); Platelet Count 296 K/mcL (140-400); Platelet Count 305 K/mcL (140-400); Red Blood Count 2.75 M/mcL (3.82-4.97); Red Blood Count 2.77 M/mcL (3.82-4.97); Red Cell Distribution Width 15.6 % (11.5-14.5); Red Cell Distribution Width 15.8 % (11.5-14.5); Segmented Neutrophils % 75.5 %; White Blood Count 9.1 K/mcL (4.3-11.1); White Blood Count 9.3 K/mcL (4.3-11.1)
[2022-01-17 18:26] LABS: INR 1.1; Prothrombin Time 11.8 Seconds (9.4-12.1)
[2022-01-17 18:40] LABS: Albumin 3.9 g/dL (3.5-5.7); Albumin/Globulin Ratio 1.5 (1.1-2.2); Bilirubin,Total 0.3 mg/dL (0.3-1.0); Calcium 9.1 mg/dL (8.6-10.3); Globulin 2.6 g/dL (2.4-3.5); Magnesium 1.9 mg/dL (1.6-2.6); Potassium 4.7 mEq/L (3.5-5.1); Total Protein 6.5 g/dL (6.4-8.9)
[2022-01-17 19:05] LABS: Potassium 4.7 mEq/L (3.5-5.1)
[2022-01-18] MEDS: *HR* OxyCODONE Immed Rel 5 MG TABLET PO PRN ×5 (01:47→20:26)
[2022-01-18] MEDS: Ampicillin 2,000 MG in 0.9 % Sodium Chloride Mini Bag 100 ML IVPB SCH ×2 (01:47→07:54)
[2022-01-18] MEDS ORDERED: *HR* OxyCODONE Immed Rel 5 MG TABLET PO ONE (02:43)
[2022-01-18 04:01] LABS: Hematocrit 25.3 % (35.3-44.9); Hemoglobin 8.3 g/dL (11.5-15.4); Mean Corpuscular HGB Conc 32.8 g/dL (31.6-35.5); Mean Corpuscular Hemoglobin 31.8 pg (28.0-33.3); Mean Corpuscular Volume 96.9 fL (83.0-100.0); Mean Platelet Volume 9.4 fL (9.4-12.4); Platelet Count 289 K/mcL (140-400); Red Blood Count 2.61 M/mcL (3.82-4.97); Red Cell Distribution Width 15.8 % (11.5-14.5); White Blood Count 8.1 K/mcL (4.3-11.1)
[2022-01-18 04:10] LABS: INR 1.1; Prothrombin Time 11.7 Seconds (9.4-12.1)
[2022-01-18 04:13] LABS: Activated Partial Thrombo Time 28.2 Seconds (26.0-36.0)
[2022-01-18 04:23] LABS: Calcium 9.1 mg/dL (8.6-10.3); Potassium 4.2 mEq/L (3.5-5.1)
[2022-01-18] MEDS: *HR* Heparin 5,000 UNIT/ML VIAL SQ SCH ×2 (05:06→16:23)
[2022-01-18] MEDS: 0.9 % Sodium Chloride 1,000 ML IVC SCH ×2 (07:54→20:17)
[2022-01-18] MEDS: Aspirin 81 MG TAB.CHEW PO SCH (08:07)
[2022-01-18] MEDS: atenoloL 50 MG TABLET PO SCH (08:07)
[2022-01-18] MEDS: allopurinoL 100 MG TABLET PO SCH (08:07)
[2022-01-18] MEDS: Gabapentin 100 MG CAPSULE PO SCH ×3 (08:07→20:26)
[2022-01-18] MEDS ORDERED: *HR* Midazolam HCl 2 MG/2 ML VIAL ONE (12:27)
[2022-01-18] MEDS ORDERED: 0.9 % Sodium Chloride 2,000 ML ONE (12:27)
[2022-01-18] MEDS ORDERED: *HR* Heparin 10,000 UNIT/10 ML VIAL ONE (12:27)
[2022-01-18] MEDS ORDERED: Heparin 1,000 UNITS/500 mL 500 ML ONE (12:27)
[2022-01-18] MEDS ORDERED: *HR* FentaNYL (PF) 100 MCG/2 ML VIAL ONE (12:27)
[2022-01-18] MEDS ORDERED: Nitroglycerin 1,000 MCG/5 ML VIAL IV ONE (12:28)
[2022-01-18] MEDS ORDERED: Iopamidol - 370 200 ML INFUS..BTL ONE (12:28)
[2022-01-18] MEDS: Amoxicillin 250 MG CHEWABLE TABLET PO SCH ×2 (16:23→20:26)
[2022-01-18] MEDS: Acetaminophen 325 MG TABLET PO PRN (22:12)
[2022-01-19] MEDS: *HR* OxyCODONE Immed Rel 5 MG TABLET PO PRN ×6 (00:24→23:33)
[2022-01-19] MEDS: Acetaminophen 325 MG TABLET PO PRN ×2 (04:29→16:15)
[2022-01-19] MEDS: 0.9 % Sodium Chloride 1,000 ML IVC SCH ×3 (04:29→20:07)
[2022-01-19 04:37] LABS: Eosinophils % 3.2 %; Hematocrit 26.1 % (35.3-44.9); Hemoglobin 8.4 g/dL (11.5-15.4); Immature Granulocytes % 0.6 % (0-4); Lymphocytes % 15.5 %; Mean Corpuscular HGB Conc 32.2 g/dL (31.6-35.5); Mean Corpuscular Hemoglobin 31.5 pg (28.0-33.3); Mean Corpuscular Volume 97.8 fL (83.0-100.0); Mean Platelet Volume 9.2 fL (9.4-12.4); Monocytes % 7.1 %; Platelet Count 265 K/mcL (140-400); Red Blood Count 2.67 M/mcL (3.82-4.97); Red Cell Distribution Width 15.7 % (11.5-14.5); Segmented Neutrophils % 73.4 %; White Blood Count 8.1 K/mcL (4.3-11.1)
[2022-01-19 04:38] LABS: Basophils % 0.2 %; Eosinophils # 0.3 K/mcL (0.0-0.6); Lymphocytes # 1.3 K/mcL (0.6-4.6); Monocytes # 0.6 K/mcL (0.0-1.3)
[2022-01-19 04:54] LABS: Calcium 9.4 mg/dL (8.6-10.3); Potassium 4.5 mEq/L (3.5-5.1)
[2022-01-19] MEDS: *HR* Heparin 5,000 UNIT/ML VIAL SQ SCH ×2 (05:23→16:15)
[2022-01-19] MEDS: allopurinoL 100 MG TABLET PO SCH (09:56)
[2022-01-19] MEDS: atenoloL 50 MG TABLET PO SCH (09:56)
[2022-01-19] MEDS: Gabapentin 100 MG CAPSULE PO SCH ×3 (09:57→20:07)
[2022-01-19] MEDS: Aspirin 81 MG TAB.CHEW PO SCH (09:57)
[2022-01-19] MEDS: Amoxicillin 250 MG CHEWABLE TABLET PO SCH ×3 (09:57→20:07)
[2022-01-20] MEDS: Acetaminophen 325 MG TABLET PO PRN (01:31)
[2022-01-20] MEDS: *HR* OxyCODONE Immed Rel 5 MG TABLET PO PRN ×3 (03:56→18:14)
[2022-01-20] MEDS: 0.9 % Sodium Chloride 1,000 ML IVC SCH (06:16)
[2022-01-20] MEDS: *HR* Heparin 5,000 UNIT/ML VIAL SQ SCH (06:17)
[2022-01-20 06:29] LABS: Hematocrit 24.5 % (35.3-44.9); Hemoglobin 7.9 g/dL (11.5-15.4); Mean Corpuscular HGB Conc 32.2 g/dL (31.6-35.5); Mean Corpuscular Volume 99.2 fL (83.0-100.0); Mean Platelet Volume 9.5 fL (9.4-12.4); Platelet Count 247 K/mcL (140-400); Red Blood Count 2.47 M/mcL (3.82-4.97); Red Cell Distribution Width 15.7 % (11.5-14.5); White Blood Count 7.1 K/mcL (4.3-11.1)
[2022-01-20 06:54] LABS: Calcium 8.6 mg/dL (8.6-10.3); Potassium 4.2 mEq/L (3.5-5.1)
[2022-01-20] MEDS: Amoxicillin 250 MG CHEWABLE TABLET PO SCH (08:55)
[2022-01-20] MEDS: atenoloL 50 MG TABLET PO SCH (08:55)
[2022-01-20] MEDS: Gabapentin 100 MG CAPSULE PO SCH (08:55)
[2022-01-20] MEDS: allopurinoL 100 MG TABLET PO SCH (08:56)
[2022-01-20] MEDS: Aspirin 81 MG TAB.CHEW PO SCH (08:56)
[2022-01-20] MEDS ORDERED: Heparin 1,000 UNITS/500 mL 500 ML ONE (11:16)
[2022-01-20] MEDS ORDERED: Famotidine 20 MG/2 ML VIAL IVP ONE (11:24)
[2022-01-20] MEDS ORDERED: Acetaminophen IV 1,000 MG/100 ML BAG IVPB ONE (11:25)
[2022-01-20] MEDS ORDERED: *HR* Succinylcholine 200 MG/10 ML VIAL IVP ONE (12:20)
[2022-01-20] MEDS ORDERED: *HR* FentaNYL (PF) 100 MCG/2 ML VIAL ONE (12:20)
[2022-01-20] MEDS ORDERED: Ondansetron 4 MG/2 ML VIAL ONE (12:20)
[2022-01-20] MEDS ORDERED: Lidocaine -MPF 2% 5 ML VIAL ONE (12:21)
[2022-01-20] MEDS ORDERED: *HR* Propofol 200 MG/20 ML VIAL IVP ONE (12:21)
[2022-01-20] MEDS ORDERED: *HR* Midazolam HCl 2 MG/2 ML VIAL ONE (12:21)
[2022-01-20] MEDS ORDERED: *HR* Remifentanil 2 MG VIAL IVP ONE (12:22)
[2022-01-20] MEDS ORDERED: Ondansetron 4 MG/2 ML VIAL IVP PRN ×2 (14:00→18:57)
[2022-01-20] MEDS ORDERED: *HR* Labetalol 20 MG/4 ML SYRINGE IVP PRN (14:00)
[2022-01-20] MEDS ORDERED: *HR* Meperidine 25 MG/ML SYRINGE IVP PRN (14:00)
[2022-01-20] MEDS ORDERED: Ipratropium Neb 0.5 MG NEBULIZER IH PRN (14:00)
[2022-01-20] MEDS ORDERED: Albuterol 2.5 MG/3 ML NEBULIZER IH PRN (14:00)
[2022-01-20] MEDS ORDERED: *HR* Remifentanil 1 MG VIAL IVP ONE (15:31)
[2022-01-20] MEDS: *HR* HYDROmorphone PF 0.5 MG/0.5 ML SYRINGE IVP PRN ×4 (17:15→17:45)
[2022-01-20] MEDS ORDERED: Acetaminophen IV 1,000 MG/100 ML BAG IVPB PRN (17:30)
[2022-01-20] MEDS ORDERED: *HR* OxyCODONE/APAP 10/325 TABLET PO ONE (18:04)
[2022-01-20] MEDS ORDERED: Naloxone 0.4 MG/ML INJ IVP PRN (18:57)
[2022-01-20] MEDS ORDERED: Ringers Solution, Lactated 1,000 ML IVC SCH (18:57)
[2022-01-20] MEDS ORDERED: Furosemide 40 MG TABLET PO PRN (18:57)
[2022-01-20] MEDS ORDERED: ALPRAZolam 0.5 MG TABLET PO PRN (18:57)
[2022-01-20] MEDS ORDERED: Ondansetron ODT 4 MG TAB.RAPDIS PO PRN (18:57)
[2022-01-20] MEDS: CeFAZolin 2 GM/120 ML BAG IVPB SCH (20:13)
[2022-01-20] MEDS ORDERED: NON-FORMULARY MEDICATION 1 EACH EACH (Ketotifen Fumarate [Zaditor] 5 ML Drops) BOTH EYES SCH (21:00)
[2022-01-20] MEDS: Nystatin POWDER 30 GM BOTTLE TP SCH (21:02)
[2022-01-21] MEDS: CeFAZolin 2 GM/120 ML BAG IVPB SCH (05:37)
[2022-01-21] MEDS: Nystatin POWDER 30 GM BOTTLE TP SCH ×2 (09:55→20:23)
[2022-01-21] MEDS: atenoloL 50 MG TABLET PO SCH (09:55)
[2022-01-21] MEDS: PARoxetine 10 MG TABLET PO SCH (09:55)
[2022-01-21] MEDS: Cholecalciferol (D-3) 1,000 UNIT (25MCG) TABLET PO SCH (09:55)
[2022-01-21 14:08] LABS: Mean Platelet Volume 9.7 fL (9.4-12.4); Red Cell Distribution Width 15.3 % (11.5-14.5)
[2022-01-21 14:11] LABS: Basophils % 0.1 %; Hematocrit 25.1 % (35.3-44.9); Hemoglobin 8.4 g/dL (11.5-15.4); Lymphocytes # 1.7 K/mcL (0.6-4.6); Lymphocytes % 12.3 %; Mean Corpuscular HGB Conc 33.5 g/dL (31.6-35.5); Mean Corpuscular Hemoglobin 31.9 pg (28.0-33.3); Mean Corpuscular Volume 95.4 fL (83.0-100.0); Monocytes % 7.6 %; Neutrophils # 10.6 K/mcL (1.6-8.9); Platelet Count 248 K/mcL (140-400); Red Blood Count 2.63 M/mcL (3.82-4.97); White Blood Count 13.4 K/mcL (4.3-11.1)
[2022-01-21] MEDS: *HR* OxyCODONE Immed Rel 5 MG TABLET PO PRN (20:29)
[2022-01-22] MEDS: *HR* OxyCODONE Immed Rel 5 MG TABLET PO PRN ×3 (00:54→23:06)
[2022-01-22 06:16] LABS: Calcium 8.6 mg/dL (8.6-10.3); Potassium 4.1 mEq/L (3.5-5.1)
[2022-01-22 07:18] LABS: Basophils % 0.2 %; Eosinophils % 0.2 %; Hematocrit 18.8 % (35.3-44.9); Hemoglobin 6.2 g/dL (11.5-15.4); Immature Granulocytes % 0.7 % (0-4); Lymphocytes # 1.3 K/mcL (0.6-4.6); Lymphocytes % 10.8 %; Mean Corpuscular Volume 96.9 fL (83.0-100.0); Mean Platelet Volume 9.1 fL (9.4-12.4); Monocytes # 1.1 K/mcL (0.0-1.3); Monocytes % 9.1 %; Neutrophils # 9.6 K/mcL (1.6-8.9); Platelet Count 196 K/mcL (140-400); Red Blood Count 1.94 M/mcL (3.82-4.97); Red Cell Distribution Width 15.3 % (11.5-14.5); White Blood Count 12.1 K/mcL (4.3-11.1)
[2022-01-22] MEDS: Cholecalciferol (D-3) 1,000 UNIT (25MCG) TABLET PO SCH (08:14)
[2022-01-22] MEDS: atenoloL 50 MG TABLET PO SCH (08:14)
[2022-01-22] MEDS: Nystatin POWDER 30 GM BOTTLE TP SCH ×2 (08:14→19:52)
[2022-01-22] MEDS: PARoxetine 10 MG TABLET PO SCH (08:14)
[2022-01-22] MEDS ORDERED: 0.9 % Sodium Chloride 250 ML ONE ×2 (09:38→14:59)
[2022-01-22] MEDS: *HR* HYDROcodone/Acet 5/325 mg TABLET PO PRN (13:30)
[2022-01-22 18:47] LABS: Hematocrit 23.2 % (35.3-44.9); Hemoglobin 7.7 g/dL (11.5-15.4)
[2022-01-22] MEDS ORDERED: *HR* LORazepam 2 MG/ML VIAL IVP ONE (22:10)
[2022-01-22] MEDS ORDERED: Morphine Sulfate 2 MG/ML SYRINGE IVP PRN ×2 (23:14)
[2022-01-23 01:51] LABS: Basophils % 0.1 %; Mean Platelet Volume 9.9 fL (9.4-12.4); Red Cell Distribution Width 16.5 % (11.5-14.5)
[2022-01-23 01:52] LABS: Hematocrit 17.4 % (35.3-44.9); Immature Granulocytes % 1.7 % (0-4); Lymphocytes # 1.4 K/mcL (0.6-4.6); Lymphocytes % 7.4 %; Mean Corpuscular HGB Conc 33.3 g/dL (31.6-35.5); Mean Corpuscular Hemoglobin 30.1 pg (28.0-33.3); Mean Corpuscular Volume 90.2 fL (83.0-100.0); Monocytes # 1.6 K/mcL (0.0-1.3); Monocytes % 8.5 %; Neutrophils # 15.1 K/mcL (1.6-8.9); Platelet Count 184 K/mcL (140-400); Red Blood Count 1.93 M/mcL (3.82-4.97); Segmented Neutrophils % 82.3 %; White Blood Count 18.3 K/mcL (4.3-11.1)
[2022-01-23 01:57] LABS: Hemoglobin 5.8 g/dL (11.5-15.4)
[2022-01-23] MEDS ORDERED: 0.9 % Sodium Chloride 250 ML IVC SCH (02:00)
[2022-01-23 02:03] LABS: Calcium 8.4 mg/dL (8.6-10.3); Potassium 3.9 mEq/L (3.5-5.1)
[2022-01-23] MEDS: Nystatin POWDER 30 GM BOTTLE TP SCH ×2 (08:02→21:00)
[2022-01-23] MEDS: atenoloL 50 MG TABLET PO SCH ×2 (08:02→12:53)
[2022-01-23] MEDS: PARoxetine 10 MG TABLET PO SCH ×2 (08:02→12:54)
[2022-01-23] MEDS: Cholecalciferol (D-3) 1,000 UNIT (25MCG) TABLET PO SCH ×2 (08:02→12:54)
[2022-01-23] MEDS ORDERED: Haloperidol Lactate 5 MG/ML VIAL IVP ONE ×2 (09:14→10:01)
[2022-01-23] MEDS: *HR* HYDROcodone/Acet 5/325 mg TABLET PO PRN ×2 (12:54→20:34)
[2022-01-23 13:43] LABS: Bacteria,Urine Few per hpf (None-Few); Bilirubin,Urine Negative (Negative); Blood,Urine Negative (Negative); Budding Yeast,Urine Few per hpf (None Seen); Clarity,Urine Clear (Clear); Color,Urine Light-Yellow (Yellow); Glucose,Urine (UA) Normal (Normal); Ketones,Urine Negative (Negative); Leukocyte Esterase,Urine Small (Negative); Mucus,Urine Few per lpf (None-Few); Nitrite,Urine Negative (Negative); Protein,Urine Trace mg/dL (Neg-Trace); RBC,Urine 0-3 per hpf (0-3); Specific Gravity,Urine 1.016 (1.010-1.025); Squamous Epithelial Cell,Urine Few per hpf (None-Few); Urobilinogen,Urine Normal (Normal)
[2022-01-24] MEDS: *HR* HYDROcodone/Acet 5/325 mg TABLET PO PRN ×4 (02:16→20:16)
[2022-01-24 03:43] LABS: Hematocrit 21.9 % (35.3-44.9); Hemoglobin 7.4 g/dL (11.5-15.4); Mean Corpuscular HGB Conc 33.8 g/dL (31.6-35.5); Mean Corpuscular Hemoglobin 30.7 pg (28.0-33.3); Mean Corpuscular Volume 90.9 fL (83.0-100.0); Mean Platelet Volume 10.3 fL (9.4-12.4); Platelet Count 151 K/mcL (140-400); Red Blood Count 2.41 M/mcL (3.82-4.97); Red Cell Distribution Width 15.3 % (11.5-14.5)
[2022-01-24 03:49] LABS: BUN/Creatinine Ratio 26 (6-26); Blood Urea Nitrogen 25 mg/dL (8-23); Calcium 8.6 mg/dL (8.6-10.3); Carbon Dioxide 21 mEq/L (23-29); Chloride 106 mEq/L (98-107); Glucose 106 mg/dL (70-105); Osmolality,Calculated 287 (280-300); Potassium 3.8 mEq/L (3.5-5.1); Sodium 136 mEq/L (136-145); eGFR For African Americans > 60 (> 60); eGFR For Non-African Americans 57 (> 60)
[2022-01-24] MEDS: PARoxetine 10 MG TABLET PO SCH (07:58)
[2022-01-24] MEDS: Cholecalciferol (D-3) 1,000 UNIT (25MCG) TABLET PO SCH (07:58)
[2022-01-24] MEDS: atenoloL 50 MG TABLET PO SCH (07:59)
[2022-01-24] MEDS: Nystatin POWDER 30 GM BOTTLE TP SCH ×2 (08:03→20:17)
[2022-01-24] MEDS: Acetaminophen 325 MG TABLET PO PRN (14:21)
[2022-01-24] MEDS: Gabapentin 300 MG CAPSULE PO SCH (20:17)
[2022-01-25] MEDS: *HR* HYDROcodone/Acet 5/325 mg TABLET PO PRN ×4 (02:11→18:55)
[2022-01-25 05:35] LABS: Hematocrit 22.7 % (35.3-44.9); Hemoglobin 7.4 g/dL (11.5-15.4); Mean Corpuscular HGB Conc 32.6 g/dL (31.6-35.5); Mean Corpuscular Hemoglobin 30.7 pg (28.0-33.3); Mean Corpuscular Volume 94.2 fL (83.0-100.0); Mean Platelet Volume 10.3 fL (9.4-12.4); Platelet Count 173 K/mcL (140-400); Red Blood Count 2.41 M/mcL (3.82-4.97); Red Cell Distribution Width 15.1 % (11.5-14.5); White Blood Count 9.8 K/mcL (4.3-11.1)
[2022-01-25 05:56] LABS: BUN/Creatinine Ratio 20 (6-26); Blood Urea Nitrogen 19 mg/dL (8-23); Calcium 8.3 mg/dL (8.6-10.3); Carbon Dioxide 21 mEq/L (23-29); Chloride 105 mEq/L (98-107); Glucose 155 mg/dL (70-105); Osmolality,Calculated 285 (280-300); Potassium 3.5 mEq/L (3.5-5.1); Sodium 135 mEq/L (136-145); eGFR For African Americans > 60 (> 60); eGFR For Non-African Americans 57 (> 60)
[2022-01-25] MEDS: Cholecalciferol (D-3) 1,000 UNIT (25MCG) TABLET PO SCH (07:28)
[2022-01-25] MEDS: atenoloL 50 MG TABLET PO SCH (07:29)
[2022-01-25] MEDS: PARoxetine 10 MG TABLET PO SCH (07:29)
[2022-01-25] MEDS: Acetaminophen 325 MG TABLET PO PRN ×3 (07:30→20:54)
[2022-01-25] MEDS: Fluconazole 100 MG TABLET PO SCH (12:36)
[2022-01-25] MEDS: Cyanocobalamin (B-12) 1,000 MCG/ML VIAL SQ SCH (12:37)
[2022-01-25] MEDS: Iron Sucrose Complex 250 MG in 0.9 % Sodium Chloride 250 ML IVPB SCH (12:37)
[2022-01-25] MEDS: Nystatin POWDER 30 GM BOTTLE TP SCH ×2 (12:42→20:57)
[2022-01-25] MEDS: Gabapentin 300 MG CAPSULE PO SCH (20:54)
[2022-01-26] MEDS: *HR* HYDROcodone/Acet 5/325 mg TABLET PO PRN ×2 (00:47→08:01)
[2022-01-26] MEDS: Acetaminophen 325 MG TABLET PO PRN ×2 (04:19→12:28)
[2022-01-26 06:57] LABS: Basophils % 0.1 %; Eosinophils # 0.2 K/mcL (0.0-0.6); Eosinophils % 2.1 %; Hematocrit 22.3 % (35.3-44.9); Hemoglobin 7.2 g/dL (11.5-15.4); Immature Granulocytes % 0.6 % (0-4); Lymphocytes % 13.5 %; Mean Corpuscular HGB Conc 32.3 g/dL (31.6-35.5); Mean Corpuscular Hemoglobin 30.4 pg (28.0-33.3); Mean Corpuscular Volume 94.1 fL (83.0-100.0); Mean Platelet Volume 9.8 fL (9.4-12.4); Monocytes # 0.7 K/mcL (0.0-1.3); Monocytes % 9.1 %; Neutrophils # 5.4 K/mcL (1.6-8.9); Platelet Count 170 K/mcL (140-400); Red Blood Count 2.37 M/mcL (3.82-4.97); Red Cell Distribution Width 15.5 % (11.5-14.5); Segmented Neutrophils % 74.6 %; White Blood Count 7.3 K/mcL (4.3-11.1)
[2022-01-26 07:15] LABS: BUN/Creatinine Ratio 17 (6-26); Blood Urea Nitrogen 17 mg/dL (8-23); Calcium 8.3 mg/dL (8.6-10.3); Carbon Dioxide 26 mEq/L (23-29); Chloride 107 mEq/L (98-107); Glucose 111 mg/dL (70-105); Magnesium 1.6 mg/dL (1.6-2.6); Osmolality,Calculated 288 (280-300); Potassium 3.6 mEq/L (3.5-5.1); Sodium 138 mEq/L (136-145); eGFR For African Americans > 60 (> 60); eGFR For Non-African Americans 54 (> 60)
[2022-01-26] MEDS: Fluconazole 100 MG TABLET PO SCH (08:02)
[2022-01-26] MEDS: Nystatin POWDER 30 GM BOTTLE TP SCH ×2 (08:03→23:48)
[2022-01-26] MEDS: Cyanocobalamin (B-12) 1,000 MCG/ML VIAL SQ SCH (08:03)
[2022-01-26] MEDS: Iron Sucrose Complex 250 MG in 0.9 % Sodium Chloride 250 ML IVPB SCH (08:31)
[2022-01-26] MEDS: Cholecalciferol (D-3) 1,000 UNIT (25MCG) TABLET PO SCH (08:32)
[2022-01-26] MEDS: atenoloL 50 MG TABLET PO SCH (08:32)
[2022-01-26] MEDS: PARoxetine 10 MG TABLET PO SCH (08:33)
[2022-01-26] MEDS: *HR* OxyCODONE/APAP 5/325 TABLET PO PRN ×3 (11:02→23:54)
[2022-01-26] MEDS: Gabapentin 300 MG CAPSULE PO SCH (23:48)
[2022-01-27 05:28] LABS: Basophils % 0.1 %; Eosinophils # 0.1 K/mcL (0.0-0.6); Hematocrit 23.4 % (35.3-44.9); Hemoglobin 7.5 g/dL (11.5-15.4); Immature Granulocytes % 0.6 % (0-4); Lymphocytes # 1.1 K/mcL (0.6-4.6); Lymphocytes % 9.1 %; Mean Corpuscular HGB Conc 32.1 g/dL (31.6-35.5); Mean Corpuscular Volume 93.6 fL (83.0-100.0); Mean Platelet Volume 9.4 fL (9.4-12.4); Monocytes # 0.9 K/mcL (0.0-1.3); Monocytes % 7.4 %; Platelet Count 199 K/mcL (140-400); Segmented Neutrophils % 81.8 %
[2022-01-27 05:32] LABS: Neutrophils # 9.8 K/mcL (1.6-8.9)
[2022-01-27 05:48] LABS: BUN/Creatinine Ratio 15 (6-26); Blood Urea Nitrogen 15 mg/dL (8-23); Calcium 8.5 mg/dL (8.6-10.3); Carbon Dioxide 25 mEq/L (23-29); Chloride 105 mEq/L (98-107); Glucose 110 mg/dL (70-105); Magnesium 1.6 mg/dL (1.6-2.6); Osmolality,Calculated 285 (280-300); Potassium 3.9 mEq/L (3.5-5.1); Sodium 137 mEq/L (136-145); eGFR For African Americans > 60 (> 60); eGFR For Non-African Americans 57 (> 60)
[2022-01-27] MEDS: Acetaminophen 325 MG TABLET PO PRN (11:36)
[2022-01-27] MEDS: *HR* OxyCODONE/APAP 5/325 TABLET PO PRN ×3 (11:37→22:09)
[2022-01-27] MEDS: Cholecalciferol (D-3) 1,000 UNIT (25MCG) TABLET PO SCH (11:38)
[2022-01-27] MEDS: atenoloL 50 MG TABLET PO SCH (11:39)
[2022-01-27] MEDS: PARoxetine 10 MG TABLET PO SCH (11:39)
[2022-01-27] MEDS: Fluconazole 100 MG TABLET PO SCH (11:39)
[2022-01-27] MEDS: Nystatin POWDER 30 GM BOTTLE TP SCH ×2 (11:40→22:09)
[2022-01-27] MEDS ORDERED: Chloraseptic Spray 177 ML BOTTLE MM PRN (14:23)
[2022-01-27] MEDS ORDERED: levoFLOXacin 750 MG/150 ML 750 MG/150 ML BAG IVPB SCH (17:00)
[2022-01-27] MEDS: Lactobacillus 1 EACH CAP.SPRINK PO SCH (22:09)
[2022-01-27] MEDS: Gabapentin 300 MG CAPSULE PO SCH (22:09)
[2022-01-28] MEDS: *HR* OxyCODONE/APAP 5/325 TABLET PO PRN ×4 (02:19→19:23)
[2022-01-28 05:27] LABS: Basophils % 0.3 %; Eosinophils # 0.1 K/mcL (0.0-0.6); Eosinophils % 0.8 %; Hemoglobin 7.6 g/dL (11.5-15.4); Immature Granulocytes % 0.8 % (0-4); Lymphocytes # 1.5 K/mcL (0.6-4.6); Lymphocytes % 10.6 %; Mean Corpuscular HGB Conc 31.7 g/dL (31.6-35.5); Mean Corpuscular Hemoglobin 30.6 pg (28.0-33.3); Mean Corpuscular Volume 96.8 fL (83.0-100.0); Mean Platelet Volume 9.9 fL (9.4-12.4); Monocytes # 1.1 K/mcL (0.0-1.3); Monocytes % 7.4 %; Neutrophils # 11.6 K/mcL (1.6-8.9); Nucleated Red Blood Cells 0.2 /100 WBC (0); Platelet Count 215 K/mcL (140-400); Red Blood Count 2.48 M/mcL (3.82-4.97); Segmented Neutrophils % 80.1 %; White Blood Count 14.4 K/mcL (4.3-11.1)
[2022-01-28 05:42] LABS: Calcium 8.4 mg/dL (8.6-10.3); Magnesium 1.5 mg/dL (1.6-2.6); Potassium 3.9 mEq/L (3.5-5.1)
[2022-01-28] MEDS: Cholecalciferol (D-3) 1,000 UNIT (25MCG) TABLET PO SCH (07:52)
[2022-01-28] MEDS: Lactobacillus 1 EACH CAP.SPRINK PO SCH ×2 (07:52→19:24)
[2022-01-28] MEDS: atenoloL 50 MG TABLET PO SCH (07:52)
[2022-01-28] MEDS: PARoxetine 10 MG TABLET PO SCH (07:52)
[2022-01-28] MEDS: Nystatin POWDER 30 GM BOTTLE TP SCH ×2 (07:55→19:24)
[2022-01-28] MEDS: Acetaminophen 325 MG TABLET PO PRN ×2 (09:48→17:41)
[2022-01-28] MEDS ORDERED: levoFLOXacin 750 MG/150 ML 750 MG/150 ML BAG IVPB SCH (16:00)
[2022-01-28] MEDS: Fluticasone Propionate Nasal 50 MCG/SPRAY BOTTLE NS SCH (18:14)
[2022-01-28] MEDS: Gabapentin 300 MG CAPSULE PO SCH (19:24)
[2022-01-28] MEDS: 0.9 % Sodium Chloride 1,000 ML IVC SCH (21:32)
[2022-01-29] MEDS: *HR* OxyCODONE/APAP 5/325 TABLET PO PRN ×3 (00:23→13:03)
[2022-01-29] MEDS: Acetaminophen 325 MG TABLET PO PRN (03:21)
[2022-01-29 03:38] LABS: Basophils % 0.2 %; Eosinophils # 0.2 K/mcL (0.0-0.6); Eosinophils % 1.8 %; Hematocrit 22.3 % (35.3-44.9); Hemoglobin 7.1 g/dL (11.5-15.4); Immature Granulocytes % 0.7 % (0-4); Lymphocytes # 1.3 K/mcL (0.6-4.6); Lymphocytes % 11.2 %; Mean Corpuscular HGB Conc 31.8 g/dL (31.6-35.5); Mean Corpuscular Hemoglobin 30.3 pg (28.0-33.3); Mean Corpuscular Volume 95.3 fL (83.0-100.0); Mean Platelet Volume 9.5 fL (9.4-12.4); Monocytes # 0.6 K/mcL (0.0-1.3); Monocytes % 4.9 %; Neutrophils # 9.2 K/mcL (1.6-8.9); Platelet Count 227 K/mcL (140-400); Red Blood Count 2.34 M/mcL (3.82-4.97); Segmented Neutrophils % 81.2 %; White Blood Count 11.4 K/mcL (4.3-11.1)
[2022-01-29 03:49] LABS: Calcium 8.4 mg/dL (8.6-10.3); Magnesium 1.5 mg/dL (1.6-2.6); Potassium 3.9 mEq/L (3.5-5.1)
[2022-01-29] MEDS: Fluticasone Propionate Nasal 50 MCG/SPRAY BOTTLE NS SCH ×2 (03:52→07:28)
[2022-01-29] MEDS: Lactobacillus 1 EACH CAP.SPRINK PO SCH (07:26)
[2022-01-29] MEDS: atenoloL 50 MG TABLET PO SCH (07:26)
[2022-01-29] MEDS: Nystatin POWDER 30 GM BOTTLE TP SCH (07:27)
[2022-01-29] MEDS: Cholecalciferol (D-3) 1,000 UNIT (25MCG) TABLET PO SCH (07:27)
[2022-01-29] MEDS: PARoxetine 10 MG TABLET PO SCH (07:27)
[2022-01-29] MEDS ORDERED: 0.9 % Sodium Chloride 1,000 ML ONE (08:10)
[2022-01-29] MEDS: 0.9 % Sodium Chloride 1,000 ML IVC SCH (08:13)
[2022-01-29 10:30] VITALS: BP 111/44; PULSE 66; TEMP 99; O2SAT 96
[2022-01-29] MEDS ORDERED: levoFLOXacin 750 MG/150 ML 750 MG/150 ML BAG IVPB SCH (17:00)
== END 2022-01-29 13:50 | disposition home health service (06) | DRG 471 ==
LOC: 3NENU 14:04 → EMEROOARM 14:04 → SUATTDRO 16:48 → 3NENU 17:33 → SUATTDRO 01-16 22:26 → 4WAOSI 01-20 14:15
PROVIDERS: ADMIT General Practice; ATTEND Pharmacist